=== PATIENT | male | born 1950 | race Caucasian/White ===

== ENCOUNTER 2021-01-22 19:21 | Inpatient (IN) | payer MEDICARE, BC, SELFPAY ==
[2021-01-22 19:22] VITALS: BP 149/82; PULSE 90; RESP 18; TEMP 36.6; O2SAT 98; BMI 27.5
[2021-01-22 19:29] VITALS: BMI 27.5
--- NOTE | 2021-01-22 19:33 | CT_ITS ---
EXAM: CT HEAD WITHOUT INTRAVENOUS CONTRAST : 1950 CLINICAL INDICATION: Neuro deficit, acute, stroke suspected TECHNIQUE: Multiple axial images were obtained of the head without intravenous contrast. This CT exam was performed using one or more of the following dose reduction techniques: automated exposure control, adjustment of the mA and/or kV according to patient size, and/or use of iterative reconstruction technique. This report was created using [employer] report generation technology. COMPARISON: None. FINDINGS: BRAIN AND EXTRA-AXIAL SPACES: There is borderline enlargement of the ventricular system and cortical sulci. No intra- or extra-axial hemorrhage. No evidence of acute infarct. No intracranial mass or mass effect. There is preservation of the green/white matter interface. Posterior fossa structures are unremarkable. Basal cisterns are patent. BONES/JOINTS: Unremarkable. No discrete lytic or blastic abnormalities. SINUSES: Unremarkable as visualized. Clear. MASTOID AIR CELLS: Unremarkable. Clear. ORBITS: Visualized globes, extraocular muscles, optic nerves and retrobulbar fat appear unremarkable. CT/STROKE Brain/Head without Cont IMPRESSION: 1. No acute intracranial abnormality. 2. ASPECTS score 10 Individualized dose optimization techniques were used for this CT. at 2130 Reported and signed by: Anurag Mack MD N.B. : The above Results were Read Back by Anurag Mack MD to Agustín Clark MD, and understanding confirmed on 01/22/2021 21:39:07 (ET). Electronically Signed: Anurag Mack MD at 21:29 EDT Tel , Service support ,
--- NOTE | 2021-01-22 19:33 | EKG12_ITS ---
Test Reason : NEURO Blood Pressure : / mmHG Vent. Rate : 088 BPM Atrial Rate : 088 BPM P-R Int : 162 ms QRS Dur : 086 ms QT Int : 372 ms P-R-T Axes : 033 -32 012 degrees QTc Int : 450 ms Normal sinus rhythm Left axis deviation Inferior infarct , age undetermined Abnormal ECG Confirmed by BAYLEE SUAREZ, LILIANA ([id number]), fan mail editor LUPE REINA ([id number]) on 01/24/2021 10:32:28 AM Referred By: ELOY Confirmed By:LILIANA BEACH MD
--- NOTE | 2021-01-22 19:34 | CT_ITS ---
EXAM: CT ANGIOGRAPHY HEAD AND NECK WITH INTRAVENOUS CONTRAST : 1950 CLINICAL INDICATION: Neuro deficit, acute, stroke suspected TECHNIQUE: [place]/head and neck CT angiography protocol performed with intravenous contrast. This CT exam was performed using one or more of the following dose reduction techniques: automated exposure control, adjustment of the mA and/or kV according to patient size, and/or use of iterative reconstruction technique. This report was created using [employer] report generation technology. MIP reconstructed images were created and reviewed. CONTRAST: IV 100mL [id number] COMPARISON: None. FINDINGS: HEAD: RIGHT ANTERIOR CEREBRAL ARTERY: Unremarkable. No significant stenosis at the visualized segments. Anterior communicating artery is present. No aneurysm. RIGHT MIDDLE CEREBRAL ARTERY: Unremarkable. No significant stenosis at the visualized segments. No aneurysm. RIGHT POSTERIOR CEREBRAL ARTERY: Unremarkable. No occlusion or significant stenosis. No aneurysm. LEFT ANTERIOR CEREBRAL ARTERY: Unremarkable. No significant stenosis at the visualized segments. No aneurysm. LEFT MIDDLE CEREBRAL ARTERY: Unremarkable. No significant stenosis at the visualized segments. No aneurysm. LEFT POSTERIOR CEREBRAL ARTERY: Unremarkable. No occlusion or significant stenosis. No aneurysm. BASILAR ARTERY: Unremarkable. No significant stenosis. No aneurysm. GREAT VESSELS OF AORTIC ARCH: Unremarkable. Normal anatomy, patent. OTHER VASCULATURE: No vascular malformation. NECK: RIGHT COMMON CAROTID ARTERY: Unremarkable. No significant stenosis. No dissection or occlusion. RIGHT INTERNAL CAROTID ARTERY: Unremarkable. No significant stenosis. No dissection or occlusion. RIGHT EXTERNAL CAROTID ARTERY: Unremarkable. No occlusion. RIGHT VERTEBRAL ARTERY: Unremarkable. No significant stenosis. No dissection or occlusion. LEFT COMMON CAROTID ARTERY: Unremarkable. No significant stenosis. No dissection or occlusion. LEFT INTERNAL CAROTID ARTERY: Unremarkable. No significant stenosis. No dissection or occlusion. LEFT EXTERNAL CAROTID ARTERY: Unremarkable. No occlusion. LEFT VERTEBRAL ARTERY: Unremarkable. No significant stenosis. No dissection or occlusion. LUNG APICES: Unremarkable as visualized. SOFT TISSUES: Unremarkable. CAROTID STENOSIS REFERENCE USING NASCET CRITERIA: % ICA stenosis = (1 - narrowest ICA diameter/diameter of distal cervical ICA) x 100. Moderate - 50-69% stenosis. Severe - 70-94% stenosis. Near occlusion - 95-99% stenosis. Occluded - 100% stenosis. CT/STROKE CTA Head AND Neck W/Con IMPRESSION: Negative CTA carotid and CTA brain. Individualized dose optimization techniques were used for this CT. at 2147 Reported and signed by: Anurag Mack MD N.B. : The above Results were Read Back by Anurag Mack MD to Agustín Clark MD, and understanding confirmed on 01/22/2021 21:53:25 (ET). Electronically Signed: Anurag Mack MD at 21:46 EDT Tel , Service support ,
--- NOTE | 2021-01-22 19:38 | EX.ED.DYSGE1 ---
HPI History of Present Illness Chief Complaint: Neuro S/Sx Informant: patient Narrative Narrative: Patient is a 70-year-old male who presents to the emergency department for headache and vision changes. He was sent in by his eye doctor for concern for stroke. His last known well was 6:00 PM yesterday. He had a right-sided headache which she feels is improving at this time. He currently rates as a 3 out of 10. He has lost mostly the vision in his right eye in the superior aspect. He has never had this happen before. He denies any chest pain, shortness of breath or heart palpitations. He is not a blood thinning medications. No head trauma. He denies any weakness or loss of sensation in his extremities. No issues with word finding. No discoordination. He denies any recent illness. No nausea/vomiting. [facility] Medical History (Updated 01/22/21 @ 22:[address] Agustín Clark DO) DM II (diabetes mellitus, type II), controlled HTN (hypertension) Home Medications colestipol 1 g PO BID 01/22/21 [History Last Taken Unknown] dexlansoprazole [Dexilant] 60 mg PO DAILY 01/22/21 [History Last Taken Unknown] fluticasone propionate 1 spray INTRANASAL BID 01/22/21 [History Last Taken Unknown] gabapentin 300 mg PO QHS 01/22/21 [History Last Taken Unknown] lisinopril-hydrochlorothiazide 1 tab PO DAILY 01/22/21 [History Last Taken Unknown] meloxicam 7.5 mg PO DAILY 01/22/21 [History Last Taken Unknown] metformin 500 mg PO DAILY 01/22/21 [History Last Taken Unknown] metoprolol succinate 100 mg PO DAILY 01/22/21 [History Last Taken Unknown] montelukast 10 mg PO DAILY 01/22/21 [History Last Taken Unknown] Allergy/AdvReac Type Severity Reaction Status Date / Time prednisone Allergy Hives Verified 01/22/21 19:25 Surgical History H/O hernia repair H/O knee surgery History of cataract surgery Previous back surgery Social History Smoking Status: Never smoker ROS ROS ED Constitutional Constitutional ED: Denies chills or fever(s) Eyes Eyes: Reports change in vision ENT ENT ED: Denies epistaxis or rhinorrhea Cardiovascular Cardiovascular: Denies chest pain or palpitations Respiratory/Chest Respiratory/Chest: Denies cough, dyspnea or dyspnea on exertion Gastrointestinal Gastrointestinal: Denies abdominal pain, diarrhea, nausea or vomiting Genitourinary Genitourinary ED: Denies dysuria, hematuria or urinary frequency Musculoskeletal Musculoskeletal: Denies back pain or neck pain Integumentary Denies rash Neurologic Neurologic: Reports headache(s); Denies dizziness, paresthesias or weakness EXAM Physical Exam Const Vital Signs: 01/22/21 19:22 01/22/21 20:21 01/22/21 21:21 Temperature 97.9 F Temperature Source Temporal Pulse Rate 90 81 79 Respiratory Rate 18 19 H 19 H Blood Pressure 149/82 H 134/75 H 141/75 H Blood Pressure Mean 104 94 97 Pulse Ox 98 98 99 Oxygen Delivery Method Room Air Room Air Room Air 01/22/21 22:00 Temperature 98 F Temperature Source Temporal Pulse Rate 78 Respiratory Rate 15 Blood Pressure 138/78 H Blood Pressure Mean 98 Pulse Ox 97 Oxygen Delivery Method Room Air Positive well nourished and well developed General Appearance ED: well developed and NAD HEENT Reports normocephalic, head/scalp atraumatic and moist mucous membranes Eyes EOMs intact bilaterally Eyes Narrative: Pupils are dilated from eye doctor's office. Otherwise are round. Decreased peripheral vision in superior aspect mostly in the right eye. Neck supple General: Negative for tenderness Chest Wall inspection of chest normal Resp normal respiratory effort and clear to auscultation bilaterally Auscultation: Negative for rales, rhonchi or wheezes Cardio regular rate, regular rhythm and no murmurs GI normal to inspection, nondistended, normoactive bowel sounds and non-tender Palpation: soft; Negative for guarding or rebound tenderness present Back/Spine no CVA tenderness Extremity normal to inspection General Extremety ED: Negative for edema or tenderness General Extremity: Negative for edema Neuro oriented x3, CN's II-XII intact bilaterally and no sensory deficits noted Neuro Narrative: NIH score of 1 due to vision problem. Sensorium / Orientation: alert Motor Exam: strength 5/5 throughout Psych mental status grossly normal Skin no rashes or lesions noted MDM MDM MDM Narrative Medical decision making narrative: Patient presents to the emergency department for headache and loss of vision in the superior aspect of his right eye. He was seen by the eye doctor today and referred to the emerge department for suspected stroke. Patient is well out of the TPA window. His symptoms are more than 24 hours ago so stroke alert not called. Will check CT imaging as well as basic lab work. Patient CT imaging did not reveal any acute findings. No obvious large vessel occlusion. His lab work did show his creatinine to be high. There are no recent lab work to compare this to. He states that he was never told he had kidney problems before. He states he has not been drinking much water and working on the heat lately. He does have an elevated troponin as well. This could be related to the kidney disease is not complaining of any chest pain or shortness of breath. This time will bring her to the hospital for further evaluation and management. He understands and is agreeable to plan. All questions were answered. Lab Data Labs: Laboratory Results - last 24 hr 01/22/21 01/22/21 01/22/21 19:30 19:30 19:30 WBC 9.4 RBC 4.72 Hgb 14.7 Hct 43.8 MCV 92.8 MCH 31.1 MCHC 33.6 RDW Std Deviation 42.3 RDW Coeff of [place] 12.3 Plt Count 198 MPV 9.7 Immature Gran % (Auto) 0.300 Neut % (Auto) 64.1 Lymph % (Auto) 23.4 [place] % (Auto) 10.6 H Eos % (Auto) 1.0 Baso % (Auto) 0.6 Absolute Neuts (auto) 6.0 Absolute Lymphs (auto) 2.20 Nucleated RBC % 0 PT 13.1 INR 1.1 APTT 25.1 Sodium 138 Potassium 4.6 Chloride 105 Carbon Dioxide 25.0 Anion Gap 8 BUN 44 H Creatinine 2.57 H Estim Creat Clear Calc 27.13 Est GFR (MDRD) Af Amer 32 L Est GFR (MDRD) Non-Af 27 L BUN/Creatinine Ratio 17.1 Glucose 143 H Calcium 8.6 Troponin I High Sens 161.5 H* POC Glucose 01/22/21 19:38 WBC RBC Hgb Hct MCV MCH MCHC RDW Std Deviation RDW Coeff of [place] Plt Count MPV Immature Gran % (Auto) Neut % (Auto) Lymph % (Auto) [place] % (Auto) Eos % (Auto) Baso % (Auto) Absolute Neuts (auto) Absolute Lymphs (auto) Nucleated RBC % PT INR APTT Sodium Potassium Chloride Carbon Dioxide Anion Gap BUN Creatinine Estim Creat Clear Calc Est GFR (MDRD) Af Amer Est GFR (MDRD) Non-Af BUN/Creatinine Ratio Glucose Calcium Troponin I High Sens POC Glucose 158 H Radiography Diagnostic Testing: Radiology Impression Head/Neck CTA 01/22/21 19:34 IMPRESSION: Negative CTA carotid and CTA brain. Individualized dose optimization techniques were used for this CT. at 2147 Reported and signed by: Anurag Mack MD Electronically Signed: Anurag Mcak MD at 21:46 EDT Tel , Service support , ADDENDUM: 01/22/21 2200 IMPRESSION: Negative CTA carotid and CTA brain. Individualized dose optimization techniques were used for this CT. at 2147 Reported and signed by: Anurag Mack MD N.B. : The above Results were Read Back by Anurag Mack MD to Agustín Clark MD, and understanding confirmed on 01/22/2021 21:53:25 (ET). Electronically Signed: Anurag Mack MD at 21:46 EDT Tel , Service support , Chest X-Ray 01/22/21 19:39 IMPRESSION: No acute findings in the chest. at 2013 Reported and signed by: Anurag Mack MD Electronically Signed: Anurag Mack MD at 20:12 EDT Tel , Service support , EKG Initial EKG: Attestation: I personally reviewed and interpreted this EKG as follows: (Rate of 88 bpm and normal sinus rhythm. Normal intervals. Left axis deviation. No significant ST elevations or depressions. No T wave abnormalities.) Discharge Plan Dx/Rx/DC Orders Clinical Impression: Headache, Loss of part of visual field, Creatinine elevation, Elevated troponin Disposition Disposition: Acute Care Hospital [facility] Discharge Date/Time: 01/22/21 22:36
--- NOTE | 2021-01-22 19:39 | RAD_ITS ---
EXAM: XR CHEST, 1 VIEW : 1950 CLINICAL INDICATION: Neuro deficit, acute, stroke suspected TECHNIQUE: Frontal view of the chest. This report was created using [employer] report generation technology. COMPARISON: None. FINDINGS: LUNGS AND PLEURAL SPACES: Unremarkable. No consolidation or edema. No pneumothorax. No effusion. HEART: Unremarkable. Cardiac silhouette not enlarged. MEDIASTINUM: Central airways and mediastinal contour are unremarkable. BONES/JOINTS: There is a total right shoulder prosthesis. There are degenerative changes with joint space narrowing of the left shoulder. SOFT TISSUES: Unremarkable. RAD/Chest 1 View IMPRESSION: No acute findings in the chest. at 2013 Reported and signed by: Anurag Mack MD Electronically Signed: Anurag Mack MD at 20:12 EDT Tel , Service support ,
[2021-01-22 19:41] LABS: Bedside Glucose 158 mg/dL (70-110)
[2021-01-22 19:41] LABS: Basophil# 0.06 X10^3/uL; Basophil% 0.6 % (0-1); Eosinophil# 0.09 X10^3/uL; Hematocrit 43.8 % (40-54); Hemoglobin 14.7 g/dL (13.0-16.5); Lymphocyte % 23.4 % (19-41); Mean Corp Hgb Conc 33.6 g/dL (32-36); Mean Corpuscular Hgb 31.1 pg (27.0-32.0); Mean Corpuscular Volume 92.8 fL (80-94); Mean Platelet Vol. 9.7 fl (6.2-12.0); Monocyte% 10.6 % (0-10); NRBC Flagged by Analyzer 0 % (0-5); Neutrophil # 6.03 X10^3/uL (2.7-7.7); Neutrophil % 64.1 % (47-70); Platelet Count 198 K/mm3 (150-450); RBC Distribution Width CV 12.3 % (11.6-14.6); RBC Distribution Width SD 42.3 fl (35.1-43.9); Red Blood Count 4.72 M/mm3 (4.6-6.2); White Blood Count 9.4 K/mm3 (4.4-11.0)
[2021-01-22 19:46] LABS: International Normalized Ratio 1.1; Prothrombin Time (Protime)PT. 13.1 SECONDS (11.7-14.9)
[2021-01-22 19:47] LABS: Partial Thromboplast Time 25.1 Seconds (24.1-36.2)
[2021-01-22 19:59] LABS: Anion Gap 8 (5-15); BUN 44 mg/dL (7-18); BUN/Creat Ratio 17.1 RATIO (10-20); Calcium,Total 8.6 mg/dL (8.5-10.1); Chloride 105 mmol/L (98-107); Creatinine, Serum 2.57 mg/dL (0.70-1.30); EST Glomerular Filtration Rate 27 mL/min (>60); Est Glom Filt Rate - Afr Amer 32 mL/min (>60); Estimated Creatinine Clearance 27.13 ml/min; Glucose 143 mg/dL (74-106); Potassium 4.6 mmol/L (3.5-5.1); Sodium Level 138 mmol/L (136-145)
[2021-01-22 20:01] LABS: Troponin-I HS 161.5 pg/mL (3.0-78.5)
[2021-01-22] MEDS: 0.9% Normal Saline 1,000 ML 999 ML IV (20:16)
[2021-01-22 20:21] VITALS: BP 134/75; PULSE 81; RESP 19; O2SAT 98
[2021-01-22 21:21] VITALS: BP 141/75; PULSE 79; RESP 19; O2SAT 99
[2021-01-22 22:00] VITALS: BP 138/78; PULSE 78; RESP 15; TEMP 36.6; O2SAT 97
[2021-01-22 22:09] VITALS: BP 149/89; PULSE 79; RESP 18; TEMP 36.7; O2SAT 99
--- NOTE | 2021-01-22 22:10 | HP.PCM.HOS_ITS ---
HPI - General General Date of Admission: 01/22/21 Date of Service: 01/22/21 Chief Complaint: Blurriness of the right eye HPI Narrative GREG OLIVERA is a 70 M with a significant history of hypertension and diabetes who presents to the emergency department with a persistent right eye blurry vision that started on the same day of presentation. His blurry vision is located at the right upper quadrants of his right eye. Even though it was a Saturday he called his dress finisher and went to the dress finisher office where pupillary dilatation exams was done. Because of concern for stroke he was instructed to come to emergency department. Also, he reports headache that started a day before presentation. The headache was at his forehead. He described it as as severe. The headache improved with taking Tylenol. [facility] Medical History DM II (diabetes mellitus, type II), controlled HTN (hypertension) Home Medications colestipol 1 g PO BID 01/22/21 [History Last Taken Unknown] dexlansoprazole [Dexilant] 60 mg PO DAILY 01/22/21 [History Last Taken Unknown] fluticasone propionate 1 spray INTRANASAL BID 01/22/21 [History Last Taken Unknown] gabapentin 300 mg PO QHS 01/22/21 [History Last Taken Unknown] lisinopril-hydrochlorothiazide 1 tab PO DAILY 01/22/21 [History Last Taken Unknown] meloxicam 7.5 mg PO DAILY 01/22/21 [History Last Taken Unknown] metformin 500 mg PO DAILY 01/22/21 [History Last Taken Unknown] metoprolol succinate 100 mg PO DAILY 01/22/21 [History Last Taken Unknown] montelukast 10 mg PO DAILY 01/22/21 [History Last Taken Unknown] Allergy/AdvReac Type Severity Reaction Status Date / Time prednisone Allergy Hives Verified 01/22/21 19:25 other (His father from poisoning. His mother from natural courses.) Surgical History H/O hernia repair H/O knee surgery H/O shoulder surgery History of cataract surgery Previous back surgery Social History Smoking Status: Never smoker ROS ROS Narrative Constitutional: Denies anorexia and change in weight Eyes: Reports blurry vision of the right eye. Denies eye pain or erythema of t he eye. HEENT: Reports headache. Denies abnormal hearing, dysphagia, ear pain, epistaxis, hearing loss, nasal congestion, nasal discharge, post nasal drip, sinus pressure, sore throat or other Cardiovascular: Denies chest pain. Denies dyspnea on exertion, orthopnea and paroxysmal nocturnal dyspnea Respiratory/Chest: Denies cough, excessive phlegm production, shortness of breath with exertion and wheezing Gastrointestinal: Denies abdominal pain, coffee ground emesis, constipation, diarrhea, dyspepsia, hematemesis, hematochezia, loose stools, melena, nausea, vomiting or other Genitourinary: Denies burning urination, difficulty urinating, dysuria, hematuria, nocturia, urinary frequency, urinary hesitancy, urinary incontinence, urinary urgency or other Musculoskeletal: Denies arthralgias, back pain, joint pain, joint stiffness, joint swelling, myalgias, neck pain or other Neurologic: Reports headache. Denies abnormal gait, abnormal speech, confusion, disequilibrium, dizziness, focal weakness, numbness, paresthesias, seizure-like activity, seizures, syncope, tingling, tremor(s) or other Psychiatric: Denies anxiety, depression, homicidal ideation, suicidal ideation or other Endocrinology: Denies change in body appearance, cold intolerance, excessive sweating, heat intolerance, polydipsia, polyuria or other Hematologic/Lymphatic: Denies anemia, easy bleeding, easy bruising, lymphadenopathy or other Integumentary: Denies ulcer on buttocks. Allergic/Immunologic: Denies rhinitis, hives, eczema, asthma or other Vital Signs Vital Signs Vital Signs: 01/22/21 19:22 01/22/21 20:21 01/22/21 21:21 Temperature 97.9 F Temperature Source Temporal Pulse Rate 90 81 79 Respiratory Rate 18 19 H 19 H Blood Pressure 149/82 H 134/75 H 141/75 H Blood Pressure Mean 104 94 97 Pulse Ox 98 98 99 Oxygen Delivery Method Room Air Room Air Room Air 01/22/21 22:00 Temperature 98 F Temperature Source Temporal Pulse Rate 78 Respiratory Rate 15 Blood Pressure 138/78 H Blood Pressure Mean 98 Pulse Ox 97 Oxygen Delivery Method Room Air Weight Weight: 84.6 kg Body Mass Index (BMI) 27.5 Physical Exam Narrative Physical exam: General: Well-nourished, well-developed, no acute distress Head: Normocephalic, atraumatic, no tenderness Eyes: Dilated bilateral eyes. PERRLA, EOMI ENT, no trauma, moist mucous membranes, no rhinorrhea Neck: Nontender, full range of motion, no spinal tenderness, deformities, step- off CVS: Regular rate and rhythm Respiratory no acute distress, clear to auscultation bilaterally, chest wall nontender, no wheezing Abdomen: Soft, nontender, nondistended, normal bowel sounds, no masses : Deferred Back: Nontender, no CVA tenderness, no midline spinal tenderness, deformities, step-offs Extremities: Nontender full range of motion, no trauma Skin: Normal color, no trauma, abrasions Neuro: Alert, oriented, cranial nerves II through XII grossly intact; except with right upper quadrantanopsia of the right eye. No dysmetria. No change in sensation. Deep tendon reflexes not hyperreflexia throughout Psychiatry: Normal mood. Normal affect. Not depressed. Not anxious. Results Lab / Micro Data Result Diagrams: 01/22/21 19:30 01/22/21 19:30 Labs: Laboratory Results - last 24 hr 01/22/21 19:30: WBC 9.4, RBC 4.72, Hgb 14.7, Hct 43.8, MCV 92.8, MCH 31.1, MCHC 33.6, RDW Std Deviation 42.3, RDW Coeff of [place] 12.3, Plt Count 198, MPV 9.7, Immature Gran % (Auto) 0.300, Neut % (Auto) 64.1, Lymph % (Auto) 23.4, [place] % (Auto) 10.6 H, Eos % (Auto) 1.0, Baso % (Auto) 0.6, Absolute Neuts (auto) 6.0, Absolute Lymphs (auto) 2.20, Nucleated RBC % 0 01/22/21 19:30: PT 13.1, INR 1.1, APTT 25.1 01/22/21 19:30: Sodium 138, Potassium 4.6, Chloride 105, Carbon Dioxide 25.0, Anion Gap 8, BUN 44 H, Creatinine 2.57 H, Estim Creat Clear Calc 27.13, Est GFR (MDRD) Af Amer 32 L, Est GFR (MDRD) Non-Af 27 L, BUN/Creatinine Ratio 17.1, Glucose 143 H, Calcium 8.6, Troponin I High Sens 161.5 H* 01/22/21 19:38: POC Glucose 158 H Radiology Impression Head/Neck CTA 01/22/21 19:34 IMPRESSION: Negative CTA carotid and CTA brain. Individualized dose optimization techniques were used for this CT. at 2147 Reported and signed by: Anurag Mack MD Electronically Signed: Anurag Mack MD at 21:46 EDT Tel , Service support , ADDENDUM: 01/22/21 2200 IMPRESSION: Negative CTA carotid and CTA brain. Individualized dose optimization techniques were used for this CT. at 2147 Reported and signed by: Anurag Mack MD N.B. : The above Results were Read Back by Anurag Mack MD to Agustín Clark MD, and understanding confirmed on 01/22/2021 21:53:25 (ET). Electronically Signed: Anurag Mack MD at 21:46 EDT Tel , Service support , Chest X-Ray 01/22/21 19:39 IMPRESSION: No acute findings in the chest. at 2013 Reported and signed by: Anurag Mack MD Electronically Signed: Anurag Mack MD at 20:12 EDT Tel , Service support , Assessment & Plan Assessment/Plan (1) Headache: QUALIFIERS: Headache chronicity pattern: acute headache Headache type: tension-type Intractability: intractable Qualified Code(s): G44.201 - Tension-type headache, unspecified, intractable (2) Loss of part of visual field: (3) Creatinine elevation: (4) Elevated troponin: (5) FABY (acute kidney injury): PLAN: Loss of part of visual field/ headache Differential diagnosis include stroke. Impression of head/neck CTA by radiology: Negative CTA carotid and CT brain. Actual head and neck CTA image was independently interpreted: No acute pathology seen. Impressive chest x-ray by radiology: No acute findings in the chest. Actual chest x-ray image was independently interpreted and I agree with radiologist interpretation. -Check Hba1c, Lipid level Physical therapy, and occupational therapy to work with patient. N.p.o. until bedside swallow eval. Daily aspirin ordered. High intensity statin ordered Permissive hypertension. Control blood pressure with labetalol IV and hydralazine IV for systolic blood pressure of more than 220 or diastolic blood pressure of more than 120. MRI of brain ordered No previous echocardiogram on file. Echocardiogram ordered. FABY Baseline creatinine of 0.94 per Community records reviewed reviewed where creatinine on 08/03/2020 was 0.96; and creatinine 02/05/2020 was 0.90. Creatinine on admission was 2.57. BUN 44. BUN over creatinine 17.1. Urine electrolytes ordered. Gentle IV hydration. Avoid nephrotoxins. Home meloxicam held. Lisinopril and hydrochlorothiazide held. De-escalate dose of home gabapentin. Elevated troponin High sensitivity troponin of 161.5. Likely secondary to strokelike symptoms. Trend. Hypertension Blood pressure is stable in regard to his age. Home antihypertensive medication held as above to allow for permissive hypertension. As needed hydralazine and labetalol for permissive hypertension. Diabetes mellitus Patient with mild hyperglycemia on presentation. Home Metformin held Accu-Chek QA [facility] with correction scale insulin ordered. DVT prophylaxis: SCD ordered. Charges/Coding Visit Charges OBSV E&M: 93699 Initial observation care L3
--- NOTE | 2021-01-22 22:46 | ECHOD_ITS ---
Reason For Study: TIA/CVA Procedure This was a 2D Doppler, Color Flow transthoracic echocardiogram. Exam performed portable in patient room. Left Ventricle Normal LV size. Left ventricular systolic function is normal. The estimated ejection fraction is 60 %. Stage 1 diastolic dysfunction. No regional wall motion abnormalities noted. Right Ventricle Normal RV size. Normal systolic function. Atria Normal left atrium. Normal right atrium. Bubble contrast study negative for right to left interatrial shunt. Mitral Valve There is mild to moderate mitral annular calcification. Tricuspid Valve Normal tricuspid valve. Trivial tricuspid valve insufficiency. Aortic Valve Normal aortic valve. Great Vessels Normal aortic root. The pulmonary artery is normal size. Normal inferior vena cava. Pericardium/Pleural No pericardial effusion. Medication Performed a rapid injection of agitated mix of 9 cc saline and 1cc air to assess for atrial septal defect. MMode/2D Measurements & Calculations LVIDd: 5.3 cm IVSd: 0.85 cm Ao root diam: 3.2 cm LVIDs: 2.9 cm LVPWd: 0.92 cm RVDd: 3.4 cm FS: 45.9 % LAV(MOD-bp): 47.5 ml LA A4 area: 15.1 cm2 LA dimension(2D): 3.8 cm LAV(MOD-bp) Indexed: 23.9 ml/m2 LAV(MOD-sp2): 43.3 ml LAV(MOD-sp4): 42.3 ml RA A4 area: 9.8 cm2 Doppler Measurements & Calculations MV E max david: 83.8 cm/sec Lat Peak E' David: 8.5 cm/sec Med Peak E' David: 5.7 cm/sec MV A max david: 98.4 cm/sec E/E' lat: 9.8 E/E' med: 14.6 MV E/A: 0.85 Ao V2 max: 135.9 cm/sec LV V1 max: 104.4 cm/sec PA V2 max: 91.9 cm/sec Ao max P.4 mmHg LV V1 max P.4 mmHg Ao V2 mean: 88.7 cm/sec Ao mean P.5 mmHg Ao V2 VTI: 26.8 cm TR max david: 219.9 cm/sec TR max P.3 mmHg ECHO/Echo Complete Interpretation Summary Normal LV size. Left ventricular systolic function is normal. The estimated ejection fraction is 60 %. Bubble contrast study negative for right to left interatrial shunt. Stage 1 diastolic dysfunction. Ordering Physician: Agustín Good Referring Physician: Fatmata Uribe Performed By: Felicity Sharpe, ODALIS, RVT
[2021-01-22 22:49] VITALS: BMI 26.9
[2021-01-22 23:00] VITALS: PULSE 76; O2SAT 99
[2021-01-22] MEDS: Fluticasone 0.05% 1 SPRAY NASAL.SRY NASAL (23:17)
[2021-01-22] MEDS: Gabapentin 300 MG Capsule PO (23:17)
[2021-01-22] MEDS: 0.9% Normal Saline 1,000 ML 100 ML IV (23:18)
[2021-01-22 23:40] LABS: Bedside Glucose 141 mg/dL (70-110)
[2021-01-23] VITALS (15 sets, daily range): BP systolic 143–176; BP diastolic 80–92; PULSE 64–87; RESP 12–17; TEMP 36.2–37.1; O2SAT 92–100; BMI 26.9
[2021-01-23 00:03] LABS: Urine Sodium 74 mmol/L (Not Establ.)
[2021-01-23 00:35] LABS: Troponin-I HS 156.4 pg/mL (3.0-78.5)
[2021-01-23 02:10] LABS: Troponin-I HS 150.5 pg/mL (3.0-78.5)
[2021-01-23 02:26] LABS: ALB/GLOB Ratio 0.9 RATIO (0.9-2.4); AST(SGOT) 15 U/L (15-37); Alanine Aminotransfer ALT/SGPT 25 U/L (16-61); Albumin, Serum 3.1 g/dL (3.2-5.0); Alkaline Phosphatase 84 U/L (45-117); Anion Gap 6 (5-15); BUN 38 mg/dL (7-18); BUN/Creat Ratio 26.6 RATIO (10-20); Calcium,Total 7.9 mg/dL (8.5-10.1); Chloride 107 mmol/L (98-107); Cholesterol 135 mg/dL (200); Creatinine, Serum 1.43 mg/dL (0.70-1.30); EST Glomerular Filtration Rate 52 mL/min (>60); Est Glom Filt Rate - Afr Amer 63 mL/min (>60); Estimated Creatinine Clearance 48.75 ml/min; Globulin 3.3 g/dL (2.2-4.2); Glucose 125 mg/dL (74-106); High Density Lipoprotein 30 mg/dL; Potassium 3.9 mmol/L (3.5-5.1); Protein, Total 6.4 g/dL (6.4-8.2); Sodium Level 138 mmol/L (136-145); Triglycerides 273 mg/dL; Very Low Density Lipoprotein 55 mg/dL (5-40)
[2021-01-23 02:32] LABS: Hemoglobin A1c 6.1 % (3.8-5.6)
[2021-01-23] MEDS: Acetaminophen 325 MG Tablet 650 MG PO ×2 (06:41→16:58)
[2021-01-23 06:51] LABS: Bedside Glucose 125 mg/dL (70-110)
--- NOTE | 2021-01-23 09:00 | MRI_ITS ---
ACR Level 3 findings have been noted. An addendum which confirms receipt of the report will follow. HISTORY: CVA, right eye blurred vision. TECHNIQUE: Multiplanar and multisequence MR images of the brain were obtained without gadolinium. # of images incl. paperwork: 300. COMPARISON: CT prior day. FINDINGS: BRAIN PARENCHYMA: Mild T2 FLAIR hyperintense signal in the periventricular white matter. Small foci of restricted diffusion in the left basal ganglia and left occipital cortex. INTRACRANIAL HEMORRHAGE: No acute intracranial hemorrhage. CSF SPACES: Cerebral ventricles, cortical sulci, and other extra-axial CSF spaces are within normal limits in size for patient's age. No midline shift or other significant mass effect. No extra-axial fluid collection. VASCULAR SYSTEM: Major intracranial flow-voids maintained. ORBITS: Bilateral lens resections. PARANASAL SINUSES AND MASTOID AIR CELLS: Mild left paranasal sinus opacification. MRI/Brain without Contrast IMPRESSION: Small acute infarct in the left occipital lobe. Small acute lacunar infarct in the left basal ganglia. Mild chronic small vessel ischemic gliosis. at 1220 Reported and signed by: Nina Pereyra MD Electronically Signed: Nina Pereyar MD at 12:19 EDT Tel , Service support ,
[2021-01-23] MEDS: Fluticasone 0.05% 1 SPRAY NASAL.SRY NASAL ×2 (09:11→21:23)
[2021-01-23] MEDS: Pantoprazole Sodium 40 MG Tablet PO (09:12)
[2021-01-23] MEDS: LORazepam 1 MG Tablet PO (09:12)
[2021-01-23] MEDS: Aspirin 81 MG TAB.CHEW PO (09:12)
[2021-01-23] MEDS: Montelukast 10 MG Tablet PO (09:13)
[2021-01-23 11:21] LABS: Bedside Glucose 130 mg/dL (70-110)
--- NOTE | 2021-01-23 13:49 | TELEMED_ITS ---
[facility] Telemed has confirmed receipt of a request for visit. This document confirms receipt of the order initiating the consult. To find the results of the consultation, please view the patient's reports for the scanned Telemed Consult.
--- NOTE | 2021-01-23 14:54 | CASEMGMT ---
SW completed a PHQ 9 with patient as he had a Stroke. He scored a 2 which indicates minimal depression. He declined any need for counseling resources. ESME did give him information on [facility] Stroke support group. Miranda VANESSA
[2021-01-23 17:05] LABS: Bedside Glucose 103 mg/dL (70-110)
[2021-01-23] MEDS: Aspirin E.C. 81 MG Tablet 243 MG PO (19:03)
--- NOTE | 2021-01-23 19:38 | ECHOTEE_ITS ---
Reason For Study: CVA Medication ROMMEL probe 6VT-D (SN [id number]) passed without difficulty. No complications were noted. Cetacaine Topical Clyo given X3 orally. Versed 3 mg given slow IVP. Fentanyl 50 mcg given slow IVP. Performed a rapid injection of agitated mix of 9 cc saline and 1cc air to assess for atrial septal defect. Left Ventricle Normal LV size. Left ventricular systolic function is normal. The estimated ejection fraction is 60 %. No regional wall motion abnormalities noted. Right Ventricle Normal RV size. Normal systolic function. Atria Normal atrial septum. Bubble contrast study negative for right to left interatrial shunt. Normal left atrium. No thrombus is detected in the left atrial appendage. Normal right atrium. Mitral Valve Normal mitral valve. Tricuspid Valve Normal tricuspid valve. Aortic Valve Trisinus/trileaflet aortic valve. Pulmonic Valve Normal pulmonic valve. Vessels Normal aortic root. Pericardium No pericardial effusion. ECHO/Echo Transesophageal (ROMMEL) Interpretation Summary Normal LV size. Left ventricular systolic function is normal. The estimated ejection fraction is 60 %. Bubble contrast study negative for right to left interatrial shunt. No thrombus is detected in the left atrial appendage. Ordering Physician: Werner Borjas Referring Physician: ANTONIA KWON Performed By: Cristy Cameron, RDCS, RVT
--- NOTE | 2021-01-23 19:54 | PN.HOSP_ITS ---
Subjective Subjective Patient was seen and examined today, his MRI of the brain showed a lacunar infarction in the left basal ganglia, he also had a small acute infarction in the left occipital lobe. I talked with the teleneurologist by phone today who stated that he felt the patient's visual disturbances were due to an emboli which should travel to the eye, the neurologist recommended the patient undergo ROMMEL and perhaps the insertion of a loop recorder, he also recommended that cardiology see the patient in consultation. Neurology did not feel the patient needed to be placed on a statin due to his low LDL. They recommend the patient be maintained on aspirin 325 mg daily and Plavix not be added to his regimen. I talked with cardiology this afternoon and they will see the patient in consultation. I also went over the patient's findings with him today and ask his if she had any questions by phone, she did not. Objective Data Objective Data Vital Signs: Vital Signs Temp Pulse Resp BP Pulse Ox 98.1 F 71 14 167/92 H 99 01/23/21 16:55 01/23/21 18:58 01/23/21 16:55 01/23/21 16:55 01/23/21 16:55 Oxygen Delivery Method Room Air Weight: 82.8 kg Body Mass Index (BMI) 26.9 Intake & Output: Intake and Output for Last 24 Hours 01/21/21 01/22/21 01/23/21 23:59 23:59 23:59 Intake Total 1000 / 1100 2233.33 / 2233.33 Output Total 250 / 250 Balance 1000 / 850 1983.33 / 1982.33 Medical Nutrition Assessment Dietitian: Nutrition Therapy Diagnosis Start: 01/23/21 14:35 Freq: Status: Active Protocol: Document 01/23/21 16:23 RMA (Rec: 01/23/21 16:23 RMA [id number]) Nutrition Malnutrition Evidence of Malnutrition Exists No Clinical Problem Altered Nutrient-Related Laboratory Values Etiology related to dyslipidemia Signs/Symptoms as evidenced by triglyceride 273 Status Active Problem Recommendation Dietitian Recommendations/Changes Will change diet to 2000 calorie/consistent carbohydrate; cardiac. Diet education as pt willing prior to d/c. Lab / Micro Data Result Diagrams: 01/22/21 19:30 01/23/21 01:30 Labs: Laboratory Results - last 24 hr 01/22/21 19:30: Sodium 138, Potassium 4.6, Chloride 105, Carbon Dioxide 25.0, Anion Gap 8, BUN 44 H, Creatinine 2.57 H, Estim Creat Clear Calc 27.13, Est GFR (MDRD) Af Amer 32 L, Est GFR (MDRD) Non-Af 27 L, BUN/Creatinine Ratio 17.1, Glucose 143 H, Calcium 8.6, Troponin I High Sens 161.5 H* 01/22/21 19:30: Hemoglobin A1c 6.1 H 01/22/21 23:26: POC Glucose 141 H 01/22/21 23:45: Troponin I High Sens 156.4 H* 01/22/21 : Ur Random Sodium 74, Urine Creatinine 59.90 01/23/21 01:30: Sodium 138, Potassium 3.9, Chloride 107, Carbon Dioxide 25.0, Anion Gap 6, BUN 38 H, Creatinine 1.43 H, Estim Creat Clear Calc 48.75, Est GFR (MDRD) Af Amer 63, Est GFR (MDRD) Non-Af 52 L, BUN/Creatinine Ratio 26.6 H, Glucose 125 H, Calcium 7.9 L, Total Bilirubin 0.20, AST 15, ALT 25, Alkaline Phosphatase 84, Total Protein 6.4, Albumin 3.1 L, Globulin 3.3, Albumin/Globulin Ratio 0.9, Triglycerides 273 H, Cholesterol 135, LDL Cholesterol 50, VLDL Cholesterol 55 H, HDL Cholesterol 30 L 01/23/21 01:30: Troponin I High Sens 150.5 H* 01/23/21 06:43: POC Glucose 125 H 01/23/21 11:15: POC Glucose 130 H 01/23/21 16:53: POC Glucose 103 Radiography Diagnostic Testing: Radiology Impression Brain CT 01/22/21 19:33 IMPRESSION: 1. No acute intracranial abnormality. 2. ASPECTS score 10 Individualized dose optimization techniques were used for this CT. at 2130 Reported and signed by: Anurag Mack MD N.B. : The above Results were Read Back by Anurag Mack MD to Agustín Clark MD, and understanding confirmed on 01/22/2021 21:39:07 (ET). Electronically Signed: Anurag Mack MD at 21:29 EDT Tel , Service support , Head/Neck CTA 01/22/21 19:34 IMPRESSION: Negative CTA carotid and CTA brain. Individualized dose optimization techniques were used for this CT. at 2147 Reported and signed by: Anurag Mack MD N.B. : The above Results were Read Back by Anurag Mack MD to Agustín Clark MD, and understanding confirmed on 01/22/2021 21:53:25 (ET). Electronically Signed: Anurag Mack MD at 21:46 EDT Tel , Service support , Chest X-Ray 01/22/21 19:39 IMPRESSION: No acute findings in the chest. at 2013 Reported and signed by: Anurag Mack MD Electronically Signed: Anurag Mack MD at 20:12 EDT Tel , Service support , Echocardiogram 01/22/21 22:46 Interpretation Summary Normal LV size. Left ventricular systolic function is normal. The estimated ejection fraction is 60 %. Bubble contrast study negative for right to left interatrial shunt. Stage 1 diastolic dysfunction. Ordering Physician: Agustín Good Referring Physician: Fatmata Uribe Performed By: Felicity Sharpe, WILBERTOCS, RVT Brain MRI 01/23/21 09:00 IMPRESSION: Small acute infarct in the left occipital lobe. Small acute lacunar infarct in the left basal ganglia. Mild chronic small vessel ischemic gliosis. at 1220 Reported and signed by: Nina Pereyra MD Electronically Signed: Nina Pereyra MD at 12:19 EDT Tel , Service support , Physical Exam Const alert, oriented x3, no apparent distress, average body habitus and healthy appearing General Appearance: cooperative, well kempt and well developed Orientation / Consciousness: awake, oriented to person, oriented to place and oriented to time HEENT normocephalic and moist oral mucous membranes Eyes PERRL, EOMs intact bilaterally and conjunctivae normal Neck nuchal rigidity, supple, no JVD, thyroid normal and no carotid bruits General: trachea midline Resp normal respiratory effort and clear to auscultation bilaterally Auscultation: Negative for rales, rhonchi or wheezes Cardio regular rate, regular rhythm, no murmurs, no rub and no gallops GI normal to inspection, nondistended, normoactive bowel sounds, soft to palpation, non-tender and non-distended Extremity no clubbing, cyanosis or edema Skin no rashes or lesions noted General Skin Exam: no breakdown Neuro oriented x3, CN's II-XII intact bilaterally, no focal motor deficits and no sensory deficits noted Sensorium / Orientation: awake and alert Speech: speech normal Motor Exam: strength 5/5 throughout Psych thought process normal and affect normal Assessment & Plan Assessment/Plan (1) Loss of part of visual field: PLAN: 1. Acute left occipital lobe stroke-believed to be embolic in nature-treatment as outlined previously #2 small acute lacunar infarct left basal ganglia-believed to be embolic in nature-treatment as outlined previously #3 type 2 diabetes #4 acute kidney injury-probably exacerbated by use of diuretics as outpatient, recheck BMP in the morning #5 essential hypertension Charges/Coding Visit Charges Inpatient E&M: 73353 Init Hosp L3
[2021-01-23] MEDS: Gabapentin 100 MG Capsule 200 MG PO (21:23)
[2021-01-23 21:46] LABS: Bedside Glucose 145 mg/dL (70-110)
[2021-01-24] VITALS (7 sets, daily range): BP systolic 137–178; BP diastolic 80–91; PULSE 69–82; RESP 16–18; TEMP 36.4–36.9; O2SAT 95–100; BMI 26.9
[2021-01-24 05:35] LABS: Anion Gap 4 (5-15); BUN 18 mg/dL (7-18); Calcium,Total 8.7 mg/dL (8.5-10.1); Chloride 108 mmol/L (98-107); Creatinine, Serum 0.86 mg/dL (0.70-1.30); EST Glomerular Filtration Rate 94 mL/min (>60); Est Glom Filt Rate - Afr Amer 114 mL/min (>60); Estimated Creatinine Clearance 81.07 ml/min; Glucose 132 mg/dL (74-106); Potassium 4.2 mmol/L (3.5-5.1); Sodium Level 138 mmol/L (136-145)
[2021-01-24] MEDS: Acetaminophen 325 MG Tablet 650 MG PO (06:37)
[2021-01-24] MEDS: 0.9% Saline Lock 10 ML Syringe IV (06:38)
[2021-01-24 07:00] LABS: Bedside Glucose 135 mg/dL (70-110)
--- NOTE | 2021-01-24 08:36 | CON.PCM.CA_ITS ---
Assessment & Plan Assessment/Plan (1) Loss of part of visual field: PLAN: Patient was noted to have loss of part of the visual field and was seen by neurology. They requested a transesophageal echocardiogram. It was p erformed this morning. His left atrial appendage was noted to be normal and nondilated. His mitral and tricuspid and aortic valves were noted to be normal. There is mild atherosclerotic plaquing noted in the aorta. At this time I would not recommend any other changes. * Would recommend a 30-day event monitor and outpatient visit in 6 weeks. HPI Consult Data Date of Consult: 01/24/21 HPI Narrative HPI Narrative: GREG OLIVERA, is a 70 M who presents with a history of hypertension, diabetes mellitus, who presents to the emergency department with a persistent right eye blurry vision that started on the same day of presentation. His blurry vision is located at the right upper quadrants of his right eye. Even though it was a Saturday he called his actuarial science teacher and went to the actuarial science teacher office where pupillary dilatation exams was done. Because of concern for stroke he was instructed to come to emergency department. Also, he reports headache that started a day before presentation. The headache was at his forehead. He described it as as severe. The headache improved with taking Tylenol. He was seen by neurology and then subsequently asked that they consult cardiology for cardiac evaluation for a ROMMEL. [facility] Medical History DM II (diabetes mellitus, type II), controlled HTN (hypertension) Home Medications colestipol 1 g PO BID 01/22/21 [History Last Taken Unknown] dexlansoprazole [Dexilant] 60 mg PO DAILY 01/22/21 [History Last Taken Unknown] fluticasone propionate 1 spray INTRANASAL BID 01/22/21 [History Last Taken Unknown] gabapentin 300 mg PO QHS 01/22/21 [History Last Taken Unknown] lisinopril-hydrochlorothiazide 1 tab PO DAILY 01/22/21 [History Last Taken Unknown] meloxicam 7.5 mg PO DAILY 01/22/21 [History Last Taken Unknown] metformin 500 mg PO DAILY 01/22/21 [History Last Taken Unknown] metoprolol succinate 100 mg PO DAILY 01/22/21 [History Last Taken Unknown] montelukast 10 mg PO DAILY 01/22/21 [History Last Taken Unknown] Allergy/AdvReac Type Severity Reaction Status Date / Time prednisone Allergy Hives Verified 01/22/21 19:25 Surgical History H/O hernia repair H/O knee surgery H/O shoulder surgery History of cataract surgery Previous back surgery Social History Smoking Status: Never smoker ROS Constitutional Constitutional: Denies fever(s) or weight loss Eyes Eyes: Reports as per HPI ENT HEENT: Reports as per HPI Cardiovascular Cardiovascular: Reports other Respiratory/Chest Respiratory/Chest: Reports other Gastrointestinal Gastrointestinal: Denies change in bowel habits, nausea, vomiting or weight changes Genitourinary Genitourinary: Denies difficulty urinating Musculoskeletal Musculoskeletal: Denies joint stiffness or muscle weakness Integumentary Integumentary: Denies lesions Neurologic Neurologic: Denies dizziness or syncope Psychiatric Psychiatric: Denies anxiety Endocrine Endocrinology: Denies excessive sweating or fatigue Hematologic/Lymphatic Hematologic/Lymphatic: Denies anemia Allergic/Immunologic Allergic/Immunologic: Denies seasonal rhinorrhea Physical Exam Const oriented x3 and healthy appearing Orientation / Consciousness: awake HEENT normocephalic Eyes PERRL and conjunctivae normal Neck supple, no JVD and no carotid bruits Chest inspection of chest normal Resp normal respiratory effort and clear to auscultation bilaterally Cardio Palpation: normal PMI Rate: regular rate Rhythm: regular rhythm Heart Sounds: S1 normal and S2 normal Peripheral Pulses: pulses 2+ throughout GI normal to inspection, nondistended, normoactive bowel sounds Extremity normal to inspection and no clubbing, cyanosis or edema Psych mental status grossly normal Objective Data Vital Signs: Vital Signs Temp Pulse Resp BP Pulse Ox 98.4 F 70 18 147/91 H 99 01/24/21 05:20 01/24/21 07:00 01/24/21 05:20 01/24/21 05:20 01/24/21 05:20 Oxygen Delivery Method Room Air Weight: 182 lb 8.684 oz Body Mass Index (BMI) 26.9 Intake & Output: Intake and Output for Last 24 Hours 01/22/21 01/23/21 01/24/21 23:59 23:59 23:59 Intake Total 1000 / 1100 2600.00 / 2600.00 Output Total 250 / 250 Balance 1000 / 850 2350.00 / 2350.00 Lab / Micro Data Result Diagrams: 01/22/21 19:30 01/24/21 05:04 Labs: Laboratory Results - last 24 hr 01/23/21 11:15: POC Glucose 130 H 01/23/21 16:53: POC Glucose 103 01/23/21 17:26: COVID-19 (LOUISE) Not Detected 01/23/21 21:20: POC Glucose 145 H 01/24/21 05:04: Sodium 138, Potassium 4.2, Chloride 108 H, Carbon Dioxide 26.0, Anion Gap 4 L, BUN 18, Creatinine 0.86, Estim Creat Clear Calc 81.07, Est GFR (MDRD) Af Amer 114, Est GFR (MDRD) Non-Af 94, BUN/Creatinine Ratio 21.0 H, Glucose 132 H, Calcium 8.7 01/24/21 06:40: POC Glucose 135 H Cardiology Labs/Tests 01/24/21 05:04: Sodium 138, Potassium 4.2, Chloride 108 H, Carbon Dioxide 26.0, Anion Gap 4 L, BUN 18, Creatinine 0.86, Est GFR (MDRD) Af Amer 114, Est GFR (MDRD) Non-Af 94, BUN/Creatinine Ratio 21.0 H, Glucose 132 H, Calcium 8.7 Rhythm: EKG: ECHO: Stress Test: Cardiac Cath: PCI: CT Surgery: Holter monitor: EPS: PPM: CXR: Chest CT Scan: Radiography Diagnostic Testing: Radiology Impression Echocardiogram 01/22/21 22:46 Interpretation Summary Normal LV size. Left ventricular systolic function is normal. The estimated ejection fraction is 60 %. Bubble contrast study negative for right to left interatrial shunt. Stage 1 diastolic dysfunction. Ordering Physician: Agustín Good Referring Physician: Fatmata Uribe Performed By: Felicity Shrape, RDCS, RVT Brain MRI 01/23/21 09:00 IMPRESSION: Small acute infarct in the left occipital lobe. Small acute lacunar infarct in the left basal ganglia. Mild chronic small vessel ischemic gliosis. at 1220 Reported and signed by: Nina Pereyra MD Electronically Signed: Nina Pereyra MD at 12:19 EDT Tel , Service support , ADDENDUM: 01/24/21 0053 IMPRESSION: Small acute infarct in the left occipital lobe. Small acute lacunar infarct in the left basal ganglia. Mild chronic small vessel ischemic gliosis. at 1220 Reported and signed by: Nina Pereyra MD N.B. : Dr. Nathan MD, confirmed on 01/24/2021 00:46:32 (ET) that the healthcare facility has received the radiology report. Electronically Signed: Nina Pereyra MD at 12:19 EDT Tel , Service support ,
--- NOTE | 2021-01-24 09:19 | PCM.DC ---
Discharge Instructions Diet Discharge Diet: No restrictions Activity Discharge Activity: Return to Normal Activity Weight Bearing Status: Full weight bearing Follow Up Care Test Results: Test results from this visit will be discussed in further detail at your follow-up appointment, if applicable. Discharge Plan Admission Admit Date/Time: 01/23/21 17:14 Primary Reason for Your Visit: stroke Attending Provider: Jay Banks Primary Care Provider: Fatmata Uribe Consulting Providers: Werner Borjas Discharge Orders/Prescriptions Prescriptions: New acetaminophen [Tylenol] 325 mg Tablet 650 mg PO Q6H PRN PRN (Reason: Pain Score 1-10/Temp > 100.7 F) Qty: 1 RF: 0 aspirin 325 mg Tablet 325 mg PO BREAKFAST Qty: 1 RF: 0 lisinopril 40 mg tablet 40 mg PO DAILY Qty: 30 RF: 0 Continued metoprolol succinate 100 mg tablet extended release 24 hr 100 mg PO DAILY RF: 0 gabapentin 300 mg capsule 300 mg PO QHS RF: 0 montelukast 10 mg tablet 10 mg PO DAILY RF: 0 fluticasone propionate 50 mcg/actuation spray,suspension 1 spray INTRANASAL BID RF: 0 metformin 500 mg tablet extended release 24 hr 500 mg PO DAILY RF: 0 colestipol 1 gram tablet 1 g PO BID RF: 0 Dexilant 60 mg capsule,biphase delayed releas 60 mg PO DAILY RF: 0 Discontinued lisinopril-hydrochlorothiazide 20-12.5 mg tablet 1 tab PO DAILY RF: 0 meloxicam 7.5 mg tablet 7.5 mg PO DAILY RF: 0 Referrals / Follow Up: Werner Borjas MD [STAFF PHYSICIAN] - See Referral Note (in 6 weeks) Fatmata Uribe MD [Primary Care Provider] - Within 2 Weeks Disposition Disposition (needs filled in before D/C Order can be placed): Home, Self Care
--- NOTE | 2021-01-24 09:53 | CASEMGMT ---
PT/OT recommends no further therapy for pt. Pt states is back to baseline. CM to follow for any further discharge planning/needs. Dav GOULD CM
--- NOTE | 2021-01-24 10:30 | CASEMGMT ---
RN CM Face to Face with patient for initial transition planning/care coordination assessment. RN CM introduced self and role at [facility]. Patient lying in bed, alert and oriented. Patient willing to participate in assessment and is able to answer all questions appropriately. Care providers, pharmacy, and demographics verified. Patient wishes to discharge home, denies need for home health at this time. Patient states he has no further needs or concerns at this time. CM to follow for discharge planning needs that may arise. PCP: Jojo Specialists: Lissa gastro; Shahrzad, urologist [facility]: yes Living Will/HPOA: yes, Abigail HURTADO: Living Arrangements: Patient lives with in a 2 story home with bed and bath on first floor. Patient states he is independent at home. Transportation: self/ DME/HHC: Patient states he has hospital bed and walker at home. Patient denies previous HHC. Disposition Plan: Patient to discharge home with family support and follow-up plans in place. Ladi ABBOTT, RN, CM
[2021-01-24] MEDS: Montelukast 10 MG Tablet PO (11:34)
[2021-01-24] MEDS: Pantoprazole Sodium 40 MG Tablet PO (11:34)
[2021-01-24] MEDS: Aspirin 325 MG Tablet PO (11:34)
[2021-01-24] MEDS: Fluticasone 0.05% 1 SPRAY NASAL.SRY NASAL (11:35)
[2021-01-24 11:41] LABS: Bedside Glucose 126 mg/dL (70-110)
--- NOTE | 2021-01-27 09:28 | DS.PCM_ITS ---
Providers Date of Admission: 01/23/21 Date of Discharge: 01/24/21 Primary Care Physician: Dr. Fatmata Uribe MD Consultations 01/23/21 17:14 Consult: Cardiology Routine Consulting Provider: Werner Borjas Reason for Consult: Need for ROMMEL and possible loop recorder EMERGENT Consult: No MD Notified: Yes Date Notified: 01/23/21 Time Notified: 17:14 Method of Notification: Verbal Method of Consult:: In-Person Reason For Visit: STROKE LIKE SYMPTOMS Diagnosis Discharge Diagnosis (1) Loss of part of visual field: Status: Acute Code(s): H53.40 - Unspecified visual field defects Plan: 1. 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 Medications at Discharge Home Medications Dexilant 60 mg PO DAILY 01/22/21 colestipol 1 g PO BID 01/22/21 fluticasone propionate 1 spray INTRANASAL BID 01/22/21 gabapentin 300 mg PO QHS 01/22/21 metformin 500 mg PO DAILY 01/22/21 metoprolol succinate 100 mg PO DAILY 01/22/21 montelukast 10 mg PO DAILY 01/22/21 acetaminophen [Tylenol] 650 mg PO Q6H PRN PRN #1 tab 01/24/21 aspirin 325 mg PO BREAKFAST #1 tab 01/24/21 lisinopril 40 mg PO DAILY #30 tab 01/24/21 Hospital Course Operations None Procedures 2-D Echocardiogram, Transesophageal Echo and Transthoracic echo Summary of Care Provided Minutes Spent on Discharge: 34 Hospital Course: This 70-year-old white male was seen in the emergency room at [facility] with complaints of right eye visual deficits and headache. Work-up in the emergency room included a CTA which showed no acute findings. A stroke alert was not called by the emergency room doctor due to the length of time the patient had symptoms. Patient was admitted to PCU, he underwent an MRI of the brain which showed acu te strokes in the left occipital area and a left-sided lacunar infarct in the basal ganglia. Patient underwent an echocardiogram that was unremarkable, he was seen in consultation by teleneurology who recommended a ROMMEL and possibly loop recorder at the time of discharge from the hospital. It was felt that the strokes were embolic in nature and he felt that the patient's right eye visual problems was due to an embolism to the eye. It was recommended that the patient take aspirin 325 mg daily. Patient was seen in consultation by cardiology, patient's ROMMEL was unremarkable, he was set up with a 30-day Holter monitor at the time of discharge from the hospital. Patient had a lipid profile during his hospitalization which showed a low LDL cholesterol, statins were not indicated and the patient preferred not to go on a statin. Patient was seen by PT and OT and it was not recommended that outpatient PT or OT be carried out. On 01/24/2021, patient was seen and examined: On examination he appeared in good health and spirits. Vital signs as documented. Skin warm and dry and without overt rashes. Neck without JVD, neck was supple, trachea midline, thyroid was normal. Lungs clear bilaterally, normal air movement was noted. Heart exam notable for regular rhythm, normal sounds and absence of murmurs, rubs or gallops. Abdomen unremarkable and without evidence of organomegaly, masses, or a bdominal aortic enlargement. Bowel sounds are present, abdomen is not distended. Extremities nonedematous, no cyanosis was noted, no clubbing was noted. Neuro: Cranial nerves II through XII are grossly intact, no focal motor deficits were noted, sensation to light touch and pinprick intact, motor exam 5/5 throughout. Psych: Patient is alert and oriented x3, he does not appear anxious or depressed, he does not appear agitated. Patient appears stable for discharge on 01/24/2021. Weight / BMI Weight Weight: 82.8 kg Body Mass Index (BMI) 26.9 ABG / Lab / Microbiology Data Result Diagrams: 01/22/21 19:30 01/24/21 05:04 D/C Instructions Discharge Diet: No restrictions Weight Bearing Status: Full weight bearing Meaningful Use Info Meaningful Use Diagnoses (Choose all that apply): Ischemic CVA CVA Therapy Assessed for PT,OT and/or ST?: Yes Ischemic Stroke Antithrombotic order at d/c?: Yes Dx of Atrial fib/flutter?: No Anticoagulant at discharge?: No Reason anticoagulant not ordered: Medical Contraindication Statins at discharge?: No Reason Statin not ordered: Treatment not Indicated Primary Dx Acute Ischemic CVA?: Yes IV tPA ordered during stay?: No Reason IV t-PA not ordered: Treatment not Indicated Discharge Plan Admission Admit Date/Time: 01/23/21 17:14 Primary Reason for Your Visit: stroke Attending Provider: Jay Banks Primary Care Provider: Fatmata Uribe Consulting Providers: Werner Borjas Discharge Orders/Prescriptions Prescriptions: New acetaminophen [Tylenol] 325 mg Tablet 650 mg PO Q6H PRN PRN (Reason: Pain Score 1-10/Temp > 100.7 F) Qty: 1 RF: 0 aspirin 325 mg Tablet 325 mg PO BREAKFAST Qty: 1 RF: 0 lisinopril 40 mg tablet 40 mg PO DAILY Qty: 30 RF: 0 Continued metoprolol succinate 100 mg tablet extended release 24 hr 100 mg PO DAILY RF: 0 gabapentin 300 mg capsule 300 mg PO QHS RF: 0 montelukast 10 mg tablet 10 mg PO DAILY RF: 0 fluticasone propionate 50 mcg/actuation spray,suspension 1 spray INTRANASAL BID RF: 0 metformin 500 mg tablet extended release 24 hr 500 mg PO DAILY RF: 0 colestipol 1 gram tablet 1 g PO BID RF: 0 Dexilant 60 mg capsule,biphase delayed releas 60 mg PO DAILY RF: 0 Discontinued lisinopril-hydrochlorothiazide 20-12.5 mg tablet 1 tab PO DAILY RF: 0 meloxicam 7.5 mg tablet 7.5 mg PO DAILY RF: 0 Referrals / Follow Up: Werner Borjas MD [STAFF PHYSICIAN] - See Referral Note (in 6 weeks) Fatmata Uribe MD [Primary Care Provider] - Within 2 Weeks Disposition Disposition (needs filled in before D/C Order can be placed): Home, Self Care Charges/Coding Visit Charges Inpatient E&M: 22504 Disch Hosp
== END 2021-01-24 12:50 | disposition home or self-care (01) | DRG 65 ==
LOC: ED 19:58 → PCU 22:19
PROVIDERS: Admitting Provider Hospitalist; Emergency Provider Emergency Medicine; PCP Family Medicine; Visit Provider Internal Medicine
DX: I63.81 Other cerebral infarction due to occlusion or stenosis of small artery (principal); N17.9 Acute kidney failure, unspecified; G44.201 Tension-type headache, unspecified, intractable; I10 Essential (primary) hypertension; H53.8 Other visual disturbances; E11.9 Type 2 diabetes mellitus without complications; H57.04 Mydriasis; Z88.8 Allergy status to other drugs, medicaments and biological substances; Z79.82 Long term (current) use of aspirin; Z98.49 Cataract extraction status, unspecified eye; R77.8 Other specified abnormalities of plasma proteins
CPT/HCPCS: 36415; 70450; 70496; 70498; 70551; 71045; 80048; 80053; 80061; 82570; 82962; 83036; 84300; 84484; 85025; 85610; 85730; 87635; 93005; 93306; 93312; 93320; 93325; 94762; 97161; 97166; 97802; 99285; J7030; J7040; Q9967; U0005; A4216; U0003

== ENCOUNTER → 2021-03-27 09:38 | Outpatient (CLI) | payer MEDICARE, BC, SELFPAY ==
--- NOTE | 2021-03-27 09:40 | CDU_ITS ---
Reason For Study: retinal artery occlusion Rt. Velocities/BP Lt. Velocities/BP Prox CCA 78.9/9.5 cm/sec. Prox CCA 75.7/12.0 cm/sec. Mid CCA 80.7/11.3 cm/sec. Mid CCA 81.2/10.9 cm/sec. Dist CCA 69.8/13.2 cm/sec. Dist CCA 65.8/13.1 cm/sec. Prox ICA 57.1/15.4 cm/sec. Prox ICA 55.9/9.8 cm/sec. Mid ICA 69.9/22.0 cm/sec. Mid ICA 69.1/19.7 cm/sec. Dist ICA 82.1/24.4 cm/sec. Dist ICA 102.7/37.6 cm/sec. Rt. ICA/CCA = 82.1/80.7=1.0. Lt. ICA/CCA = 102.7/81.2=1.3. Prox ECA 59.3/6.4 cm/sec. Prox ECA 74.6/7.6 cm/sec. Rt. Vert. 34.9/9.4 cm/sec. Lt. Vert. 56.4/9.7 cm/sec. Right Extracranial There is intimal thickening but no significant atherosclerotic plaque noted in the right common carotid artery. There is heterogeneous, smooth atherosclerotic plaque noted in the right internal carotid artery. There is no significant atherosclerotic plaque noted in the right external carotid artery. Antegrade flow is noted in the right vertebral artery. Left Extracranial There is intimal thickening but no significant atherosclerotic plaque noted in the left common carotid artery. There is homogeneous, smooth atherosclerotic plaque noted in the left internal carotid artery. There is no significant atherosclerotic plaque noted in the left external carotid artery. Antegrade flow is noted in the left vertebral artery. Procedure Carotid Duplex [id number]. This is a Carotid Duplex examination using B-mode, color flow and specral Doppler. Exam performed in department. VL/Carotid Duplex Ultrasound Interpretation Summary Minimal smooth plaque at the proximal right internal carotid artery with less t giordano 50% stenosis Less than 50% stenosis right external carotid artery Minimal smooth plaque at the proximal left internal carotid artery with less th an 50% stenosis Less than 50% stenosis left external carotid artery Patent and antegrade vertebral arteries bilaterally No change from a previous blood flow screening examination of June 09, 2013 Ordering Physician: Ric Barber Referring Physician: Fatmata Uribe Performed By: Ana Ferrer, ODALIS, RVT
== END ==
PROVIDERS: PCP Family Medicine; Referring Provider Ophthalmology; Visit Provider Ophthalmology
DX: H34.11 Central retinal artery occlusion, right eye (principal)
CPT/HCPCS: 93880

== ENCOUNTER 2021-07-04 08:45 | Outpatient (CLI) | payer MEDICARE, BC, SELFPAY ==
[2021-07-04 10:24] LABS: Vitamin B12 1069 pg/mL (211-911)
[2021-07-04 11:04] LABS: Cholesterol 145 mg/dL (200); High Density Lipoprotein 42 mg/dL; Thyroid Stim Hormone (TSH) 1.27 uIU/mL (0.358-3.74); Triglycerides 216 mg/dL; Very Low Density Lipoprotein 43 mg/dL (5-40)
[2021-07-05 17:07] LABS: Free Kappa Light Chains 20.1 mg/L (3.3-19.4); Free Lambda Light Chains 16.5 mg/L (5.7-26.3)
== END 2021-07-04 23:59 | disposition short-term general hospital (02) ==
LOC: MTLAB 08:47
PROVIDERS: PCP Family Medicine; Referring Provider Psychiatry & Neurology Neurology; Visit Provider Psychiatry & Neurology Neurology
DX: E11.69 Type 2 diabetes mellitus with other specified complication (principal); E78.5 Hyperlipidemia, unspecified; G62.9 Polyneuropathy, unspecified
CPT/HCPCS: 36415; 80061; 82607; 82746; 83883; 84443

== ENCOUNTER 2021-08-22 14:05 | Outpatient (CLI) | payer MEDICARE, BC, SELFPAY ==
[2021-08-25 14:10] LABS: Albumin 3.9 g/dL (2.9-4.4); Alpha-1-Globulins 0.2 g/dL (0.0-0.4); Alpha-2-Globulins 0.8 g/dL (0.4-1.0); Gamma Globulin 0.9 g/dL (0.4-1.8); Immunoglobulin A 402 mg/dL (61-437); Immunoglobulin G 918 mg/dL (603-1613); Immunoglobulin M 48 mg/dL (20-172); PROEL- TOTAL PROTEIN 7.1 g/dL (6.0-8.5)
== END 2021-08-22 23:59 | disposition home or self-care (01) ==
LOC: MTLAB 14:10
PROVIDERS: PCP Family Medicine; Referring Provider Psychiatry & Neurology Neurology; Visit Provider Psychiatry & Neurology Neurology
DX: G62.9 Polyneuropathy, unspecified (principal)
CPT/HCPCS: 36415; 82784; 84165; 86334; 86335

== ENCOUNTER → 2021-12-21 | Outpatient (CLI) | payer MEDICARE, BC, SELFPAY ==
[2021-12-21 10:31] LABS: AST(SGOT) 16 U/L (15-37); Alanine Aminotransfer ALT/SGPT 32 U/L (16-61); Albumin, Serum 3.5 g/dL (3.2-5.0); Alkaline Phosphatase 86 U/L (45-117); Bilirubin, Direct 0.12 mg/dL (0.00-0.30); Cholesterol 112 mg/dL (200); Globulin 3.5 g/dL (2.2-4.2); High Density Lipoprotein 37 mg/dL; Triglycerides 166 mg/dL; Very Low Density Lipoprotein 33 mg/dL (5-40)
== END | disposition home or self-care (01) ==
LOC: MTLAB 07:08
PROVIDERS: PCP Family Medicine; Referring Provider Psychiatry & Neurology Neurology; Visit Provider Psychiatry & Neurology Neurology
DX: E78.5 Hyperlipidemia, unspecified (principal)
CPT/HCPCS: 36415; 80061; 80076

== ENCOUNTER → 2023-07-12 | Outpatient (CLI) | payer MEDICARE, BC, SELFPAY ==
--- NOTE | 2023-07-12 13:39 | CDU_ITS ---
Reason For Study: Central retinal occlusion right eye Rt. Velocities/BP Lt. Velocities/BP Prox CCA 94.8/11.6 cm/sec. Prox CCA 83.4/9.7 cm/sec. Mid CCA 76.8/11.6 cm/sec. Mid CCA 74/11.6 cm/sec. Dist CCA 65.5/6.9 cm/sec. Dist CCA 62.6/8.8 cm/sec. Prox ICA 36.2/9.7 cm/sec. Prox ICA 28.6/6.9 cm/sec. Mid ICA 66.4/17.3 cm/sec. Mid ICA 64.5/19.2 cm/sec. Dist ICA 52.2/14.5 cm/sec. Dist ICA 59.8/20.1 cm/sec. Rt. ICA/CCA = 0.86. Lt. ICA/CCA = 0.87. Prox ECA 97.1 cm/sec. Prox ECA 62.6 cm/sec. Rt. Vert. 57.9/9.7 cm/sec. Lt. Vert. 48.5/6.9 cm/sec. Right Extracranial There is intimal thickening but no significant atherosclerotic plaque noted in the right common carotid artery. There is homogeneous, smooth atherosclerotic plaque noted in the right internal carotid artery. There is intimal thickening but no significant atherosclerotic plaque noted in the right external carotid artery. Antegrade flow is noted in the right vertebral artery. Left Extracranial There is homogeneous, smooth atherosclerotic plaque noted in the left common carotid artery. There is heterogeneous, irregular atherosclerotic plaque noted in the left internal carotid artery. There is heterogeneous, irregular atherosclerotic plaque noted in the left external carotid artery. Antegrade flow is noted in the left vertebral artery. Procedure Carotid Duplex [id number]. This is a Carotid Duplex examination using B-mode, color flow and specral Doppler. Exam performed in department. VL/Carotid Duplex Ultrasound Interpretation Summary Homogeneous smooth plaque at the proximal right internal carotid artery with le ss than 50% stenosis Less than 50% stenosis right external carotid artery Minimal irregular plaque at the proximal left internal carotid artery with less than 50% stenosis Less than 50% stenosis left external carotid artery Patent and antegrade vertebral arteries bilaterally Ordering Physician: Ric Barber Referring Physician: Fatmata Uribe Performed By: Ladi Teixeira RVT
--- OUTSIDE RECORDS SUMMARY | 2023-07-12 14:46 | XMS RPT_ITS | CCD ---
Author Name Unknown Address [address] [place] [address] Organization [facility] Care Team Providers [employer] Name Role Phone Fatmata Kwon Primary Care Provider MARILEE MAHMOOD Attending Unavailable MARILEE MAHMOOD Referring Unavailable FATMATA KWON Primary Care NU Kirby Admitting Unavailable FATMATA KWON Primary Care NU Kirby Attending Unavailable NU ROWLAND Referring Unavailable FATMATA KWON Primary Care Pascalev[place] lable Conchita, Avirup Unavailable Unavailable Fatmata Kwon Unavailable Unavailable Fatmata Kwon Unavailable Unavailab le Conchita, Avirup Unavailable Unavailable Markham II, Greg Unavailable Unavailable Lissa, Eleazar Unavailable Unavailable Nu Rowland Unavailable Unavailable Marilee Mahmood Unavailable Unavailable Markham II, Greg Unavailable Unavailable MARILEE MAHMOOD Attending Unavailable FATMATA KWON Primary Care MARILEE Gabriel Attending Unavailable FATMATA KWON Primary Care NU Kirby Attending Unavailable FATMATA KWON Primary Care MARILEE Gabriel Attending Unavailable FATMATA KWON Primary Care Fatmata Guajardo Primary Care Provider Fatmata Kwon Unavailable Unavailable Unavailable Unavailable Unavailable Fatmata Kwon Unavailable Lexii Mahoney Unavailable Unavailable Fatmata Kwon Primary Care Terry Castaneda, Ms. Mary Bledsoe Attending Lexii Mack Attending Unavailable Fatmata Kwon Primary Care Fatmata Guajardo MD Primary Care [facility] er Fatmata Kwon MD Primary Care Provider Fatmata Kwon MD Unavailable Unavailable Unavailable Jojo, Dr. Fatmata Wing Referring Un available Jojo, Dr. Fatmata Wing Attending Un available Jojo, Dr. Fatmata Wing Primary Care Un available Jojo, Dr. Fatmata Wing Primary Care Un available MD GREG MARKHAM Referring UnavailMD GREG Felder Attending Unavailabl e FATMATA KWON Attending Unavailab le FATMATA KWON Primary Care Unavailab elif Allergies Allergy Classification Reported Allergen(s) Allergy Type Date of Onset Reaction(s) Facility Corticosteroids (4 sources) predniSONE; Translations: [predniSONE] Drug Allergy Unknown [facility] Work Phone: (20 sources) predniSONE; Translations: [Unknown] Drug Allergy 08-12-2018 Hives, Other [facility] Medications Current Medications Medication Drug Class(es) Dates Sig (Normalized) Sig (Original) ascorbic acid 1000 mg oral tablet (13 sources) Vitamin C take 1 tablet by mouth once daily ascorbic acid, vitamin C, (vitamin C) 1000 MG tablet Take 1,000 mg by mouth daily . 0 Active brimonidine tartrate 2 mg/ml ophthalmic solution (5 sources) alpha-Adrenergic Agonist Start: 12-22-2022 take 1 drop(s) into the eye(s) three times daily brimonidine (AlphaGAN P) 0.2 % ophthalmic solution Instill 1 drop into right eye three times a day 0 12/22/2022 Active Completed/Discontinued Medications Medication Drug Class(es) Dates Sig (Normalized) Sig (Original) acetaminophen 500 mg oral tablet (20 sources) take 2 tablets by mouth every four hours as needed Acetaminophen 500 MG Oral Tablet TAKE 2 TABLET Every 4 hours PRN Quantity: 0 Refills: 0 Ordered: 04-Jun-2019 DO Active acetaZOLAMIDE 250 mg oral tablet (10 sources) Carbonic Anhydrase Inhibitor Start: 08-16-2021 acetaZOLAMIDE 250 MG Oral Tablet Quantity: 0 Refills: 0 Ordered: 16-Aug-2021 Fatmata Kwon MD Start : 16-Aug-2021 Active [id number] 200 actuat albuterol 0.09 mg/actuat metered dose inhaler (20 sources) beta2-Adrenergic Agonist Start: 02-23-2021 take 1 puff(s) by inhalation every four hours as needed Albuterol Sulfate HFA 108 (90 Base) MCG/ACT Inhalation Aerosol Solution INHALE 1 PUFF EVERY 4 HOURS NEEDED. Quantity: 1 Refills: 2 Ordered: 16-Aug-2022 Fatmata Kwon MD Start : 23-Feb-2021 Active Problems Active Problems Problem Classification Problem Date Documented Date Episodic/Chronic Asthma (20 sources) Cough variant asthma; Translations: [Reactive airway disease] Onset: 04-27-2019 04-27-2019 Chronic Calculus of urinary tract (20 sources) Kidney stone; Translations: [Calculus of kidney] Episodic Coronary atherosclerosis and other heart disease (20 sources) Coronary arteriosclerosis; Translations: [Coronary arteriosclerosis in [place] artery] Onset: 10-12-2022 02-21-2023 Chronic Diabetes mellitus with complications (20 sources) Type 2 diabetes mellitus well controlled; Translations: [Diabetes with peripheral circulatory disorders, type II or unspecified type, not stated as uncontrolled] Onset: 10-12-2022 02-21-2023 Chronic Past or Other Problems Problem Classification Problem Date Documented Da te Episodic/Chronic Other connective tissue disease (3 sources) Other specified soft tissue disorders; Translations: [Other specified soft tissue disorders] Onset: 01-11-2022 Episodic Other ear and sense organ disorders (20 sources) Otitis externa; Translations: [Infective otitis externa, unspecified] Resolved: 08-12-2019 Chronic Other lower respiratory disease (12 sources) Cough; Translations: [Cough] Onset: 11-12-2018 11-12-2018 Episodic Residual codes; unclassified (20 sources) History of clinical finding in subject; Translations: [Personal history of other specified diseases] Resolved: 08-16-2021 Episodic Unclassified (20 sources) Patient encounter status; Translations: [History of Screening for colorectal cancer] Unclassified (5 sources) History of clinical finding in subject; Translations: [History of shortness of breath] Unclassified (1 source) Onset: 02-21-2023 02-21-2023 NEGATED: Highlighted row has not occurred!Residual codes; unclassified (20 sources) Disease Episodic Results Test Name Value Interpretation Reference Range Facil ity Vital Signs Date Time Vital Sign Value Performing Clinician Facility 02-27-2023 08:41-0400 Body height 175.26 cm Fatmaatcindy Kwon Work Phone: TU-Wsuhztg-Zuhiybn Work Phone: 02-27-2023 08:41-0400 Body mass index (BMI) [Ratio] 25.84 kg/m2 Fatmata Kwon Work Phone: DN-Dtudtkc-Oqhgffx Work Phone: 02-27-2023 08:41-0400 Body surface area Derived from formula 1.95 m2 Fatmata Kwon Work Phone: SZ-Fspzudl-Slzqodu Work Phone: 02-27-2023 08:41-0400 Body weight 79.38 kg Fatmatatoo Perezmichael Work Phone: MT-Kngerxj-Dqxzeuf Work Phone: 02-27-2023 08:41-0400 Respiratory rate 16 /min Fatmata Kwon Work Phone: QL-Tuknafc-Sridwek Work Phone: 02-21-2023 09:35-0400 Body height 175.3 cm Fatmata Kwon MD Work Phone: [facility] 02-21-2023 09:35-0400 Body mass index (BMI) [Ratio] 25.52 kg/m2 Fatmata Kwon MD Work Phone: [facility] 02-21-2023 09:35-0400 Body weight 78.38 kg Fatmata Kwon MD Work Phone: [facility] 02-21-2023 09:35-0400 Diastolic blood pressure 60 mm[Hg] Fatmata Kwon MD Work Phone: [facility] 02-21-2023 09:35-0400 Heart rate 68 /min Fatmata Kwon MD Work Phone: [facility] 02-21-2023 09:35-0400 SaO2% (BldA) [Mass fraction] 98 % Fatmata Kwon MD Work Phone: [facility] 02-21-2023 09:35-0400 Systolic blood pressure 102 mm[Hg] Fatmata Kwon MD Work Phone: [facility] 06-01-2022 12:02-0500 Body height 170 cm Fatmata Kwon Other Phone: [facility] 06-01-2022 12:02-0500 Body temperature 97.88 [degF] Fatmata Kwon Other Phone: [facility] 06-01-2022 12:02-0500 Diastolic blood pressure 87 mm[Hg] Fatmata Kwon Other Phone: [facility] 06-01-2022 12:02-0500 Heart rate 74 /min Fatmata Kwon Other Phone: [facility] 06-01-2022 12:02-0500 Respiratory rate 14 /min Fatmata Kwon Other Phone: [facility] 06-01-2022 12:02-0500 SaO2% (BldA) [Mass fraction] 98 % Fatmata Kwon Other Phone: [facility] 06-01-2022 12:02-0500 Systolic blood pressure 137 mm[Hg] Fatmata Kwon Other Phone: [facility] 02-21-2022 07:53-0400 Body mass index (BMI) [Ratio] 26.18 kg/m2 Fatmata RodriguezPandaBed Work Phone: NB-Oksascd-Lhdufck Work Phone: 02-21-2022 07:53-0400 Body surface area Derived from formula 1.96 m2 Fatmata PerezRetail Optimization Work Phone: WD-Cwnloyo-Slyvqqw Work Phone: 02-21-2022 07:53-0400 Body weight 80.4 kg Fatmata RodriguezPandaBed Work Phone: MS-Ttjsvfl-Yieykxc Work Phone: 02-21-2022 07:53-0400 Diastolic blood pressure 84 mm[Hg] Fatmata RodriguezPandaBed Work Phone: VY-Udebhhn-Jsiqnxv Work Phone: 02-21-2022 07:53-0400 Heart rate 80 /min Fatmata RodriguezPandaBed Work Phone: BH-Hjtqxpv-Lrlvefz Work Phone: 02-21-2022 07:53-0400 Systolic blood pressure 142 mm[Hg] Fatmata PerezRetail Optimization Work Phone: NZ-Medyxjb-Lqpokhn Work Phone: 02-15-2022 09:22-0400 Body height 175.26 cm Fatmata RodriguezPandaBed [facility] Phone: [facility] Work Phone: 02-15-2022 09:22-0400 Body mass index (BMI) [Ratio] 25.84 kg/m2 Fatmata RodriguezPandaBed Work Phone: [facility] Work Phone: 02-15-2022 09:22-0400 Body surface area Derived from formula 1.95 m2 Fatmata RodriguezPandaBed Work Phone: [facility] Work Phone: 02-15-2022 09:22-0400 Body weight 79.38 kg Fatmata Kwon Work Phone: [facility] [employer] [facility] Work Phone: 02-15-2022 09:22-0400 Diastolic blood pressure 78 mm[Hg] Fatmata Kwon Work Phone: [facility] Work Phone: 02-15-2022 09:22-0400 Heart rate 78 /min Fatmata Kwon Work Phone: [facility] Work Phone: 02-15-2022 09:22-0400 SaO2% (BldA) [Mass fraction] 99 % Fatmata Kwon Work Phone: [facility] Work Phone: 02-15-2022 09:22-0400 Systolic blood pressure 124 mm[Hg] Fatmata Kwon Work Phone: [facility] Work Phone: 01-18-2022 07:40-0400 Body height 175.26 cm Fatmata Kwon Work Phone: [facility] [employer] [facility] Work Phone: 01-18-2022 07:40-0400 Body mass index (BMI) [Ratio] 25.48 kg/m2 Fatmata Kwon Work Phone: [facility] [employer] [facility] Work Phone: 01-18-2022 07:40-0400 Body surface area Derived from formula 1.94 m2 Fatmata Kwon Work Phone: [facility] [employer] [facility] Work Phone: 01-18-2022 07:40-0400 Body weight 78.27 kg Fatmata Kwon Work Phone: [facility] Work Phone: 01-18-2022 07:40-0400 Diastolic blood pressure 60 mm[Hg] Fatmata Kwon Work Phone: [facility] Work Phone: 01-18-2022 07:40-0400 Heart rate 78 /min Fatmata Kwon Work Phone: [facility] Work Phone: 01-18-2022 07:40-0400 Systolic blood pressure 104 mm[Hg] Fatmata Kwon Work Phone: [facility] Work Phone: 01-11-2022 09:47-0400 Body height 175.26 cm Fatmata Kwon Work Phone: [facility] Work Phone: 01-11-2022 09:47-0400 Body mass index (BMI) [Ratio] 25.31 kg/m2 Fatmata Kwon Work Phone: [facility] Work Phone: 01-11-2022 09:47-0400 Body surface area Derived from formula 1.93 m2 Fatmata Kwon Work Phone: [facility] Work Phone: 01-11-2022 09:47-0400 Body weight 77.74 kg Fatmata Kwon Work Phone: [facility] Work Phone: 01-11-2022 09:47-0400 Diastolic blood pressure 60 mm[Hg] Fatmata Kwon Work Phone: [facility] Work Phone: 01-11-2022 09:47-0400 Heart rate 78 /min Fatmata Kwon Work Phone: [facility] Work Phone: 01-11-2022 09:47-0400 SaO2% (BldA) [Mass fraction] 99 % Fatmata Kwon Work Phone: [facility] Work Phone: 01-11-2022 09:47-0400 Systolic blood pressure 100 mm[Hg] Fatmata Kwon Work Phone: [facility] Work Phone: 08-16-2021 09:31-0500 Body height 175.26 cm Fatmata Kwon Work Phone: [facility] Work Phone: 08-16-2021 09:31-0500 Body mass index (BMI) [Ratio] 26.16 kg/m2 Fatmata Kwon Work Phone: [facility] Work Phone: 08-16-2021 09:31-0500 Body surface area Derived from formula 1.96 m2 Fatmata Kwon Work Phone: [facility] Work Phone: 08-16-2021 09:31-0500 Body temperature 98 [degF] Fatmata Kwon Work Phone: [facility] Work Phone: 08-16-2021 09:31-0500 Body weight 80.35 kg Fatmata Kwon Work Phone: [facility] Work Phone: 08-16-2021 09:31-0500 Diastolic blood pressure 68 mm[Hg] Fatmata Kwon Work Phone: [facility] Work Phone: 08-16-2021 09:31-0500 Heart rate 80 /min Fatmata Kwon Work Phone: [facility] Work Phone: 08-16-2021 09:31-0500 SaO2% (BldA) [Mass fraction] 98 % Fatmata Kwon Work Phone: [facility] Work Phone: 08-16-2021 09:31-0500 Systolic blood pressure 122 mm[Hg] Fatmata Kwon Work Phone: [facility] Work Phone: 02-23-2021 09:19-0400 Body height 175.26 cm Fatmata Kwon Work Phone: [facility] Work Phone: 02-23-2021 09:19-0400 Body mass index (BMI) [Ratio] 26.63 kg/m2 Fatmata Kwon Work Phone: [facility] Work Phone: 02-23-2021 09:19-0400 Body surface area Derived from formula 1.98 m2 Fatmata Kwon Work Phone: [facility] Work Phone: 02-23-2021 09:19-0400 Body temperature 98 [degF] Fatmata Kwon Work Phone: [facility] Work Phone: 02-23-2021 09:19-0400 Body weight 81.79 kg Fatmata Kwon Work Phone: [facility] Work Phone: 02-23-2021 09:19-0400 Diastolic blood pressure 88 mm[Hg] Fatmata Kwon Work Phone: [facility] Work Phone: 02-23-2021 09:19-0400 Heart rate 78 /min Fatmata Kwon Work Phone: [facility] Work Phone: 02-23-2021 09:19-0400 SaO2% (BldA) [Mass fraction] 98 % [facility] Work Phone: [facility] Work Phone: 02-23-2021 09:19-0400 Systolic blood pressure 132 mm[Hg] Fatmata Kwon Work Phone: [facility] Work Phone: 02-08-2021 09:10-0400 Body height 175.26 cm [facility] Work Phone: [facility] Work Phone: 02-08-2021 09:10-0400 Body mass index (BMI) [Ratio] 26.58 kg/m2 [facility] Work Phone: [facility] Work Phone: 02-08-2021 09:10-0400 Body surface area Derived from formula 1.98 m2 [facility] Work Phone: [facility] Work Phone: 02-08-2021 09:10-0400 Body weight 81.65 kg [facility] Work Phone: [facility] Work Phone: 02-08-2021 09:10-0400 Diastolic blood pressure 76 mm[Hg] Fatmata Kwon Work Phone: VG[facility]Yshvynv-Huaeuzz Work Phone: 02-08-2021 09:10-0400 Heart rate 76 /min Fatmata Kwon Work Phone: UG-Yjgmzsq-Rckhbvb Work Phone: 02-08-2021 09:10-0400 Systolic blood pressure 122 mm[Hg] Fatmata Kwon Work Phone: OE-Qbvzmvl-Rjkwtso Work Phone: 02-11-2020 12:22-0400 BMI (Body Mass Index) 27.68 kg/m2 Fatmata Kwon [facility] Work Phone: 02-11-2020 12:22-0400 Body Temperature 95.3 [degF] Fatmata Kwon -[facility] Work Phone: 02-11-2020 12:22-0400 Body weight 85.02 kg Fatmata Kwon [facility] Work Phone: 02-11-2020 12:22-0400 BP Diastolic 70 mm[Hg] Fatmata Kwon -[facility] Work Phone: 02-11-2020 12:22-0400 BP Systolic 112 mm[Hg] Fatmata Kwon -[facility] Work Phone: 02-11-2020 12:22-0400 BSA (Body Surface Area) 2.01 m2 Fatmata Kwon [facility] Work Phone: 02-11-2020 12:22-0400 Height 175.26 cm Fatmata Kwon [facility] Work Phone: 02-11-2020 12:22-0400 Pulse (Heart Rate) 83 /min Fatmata Kwon [facility] Work Phone: 01-20-2020 09:45-0400 BMI (Body Mass Index) 27.84 kg/m2 Greg Markham II [facility] Work Phone: 01-20-2020 09:45-0400 Body weight 85.5 kg Greg Markham II [facility] Work Phone: 01-20-2020 09:45-0400 BP Diastolic 76 mm[Hg] Greg Markham II [facility] Work Phone: 01-20-2020 09:45-0400 BP Systolic 127 mm[Hg] Greg Markham II -[facility] Work Phone: 01-20-2020 09:45-0400 BSA (Body Surface Area) 2.01 m2 Greg Markham II [facility] Work Phone: 01-20-2020 09:45-0400 Height 175.26 cm Greg Markham II [facility] Work Phone: 01-20-2020 09:45-0400 Pulse (Heart Rate) 69 /min Greg Markham II [facility] Work Phone: 12-28-2019 09:33-0400 BMI (Body Mass Index) 28.56 kg/m2 Greg Markham II BJ[facility]Epodrsq-Kowanxd Work Phone: 12-28-2019 09:33-0400 Body weight 87.71 kg Greg Markham II GV-Akhecsy-Rgopz nd Work Phone: 12-28-2019 09:33-0400 BP Diastolic 54 mm[Hg] Greg Markham II XU-Roctfql-Eaoqt nd Work Phone: 12-28-2019 09:33-0400 BP Systolic 152 mm[Hg] Greg Markham II OU-Cktmpqz-Aikyn nd Work Phone: 12-28-2019 09:33-0400 BSA (Body Surface Area) 2.04 m2 Greg Markham II GY-Ceyxbvx-Qouzveu Work Phone: 12-28-2019 09:33-0400 Height 175.26 cm Greg Markham II CP-Ioffrir-Qrnje nd Work Phone: 12-28-2019 09:33-0400 Pulse (Heart Rate) 74 /min Greg Markham II ZB-Enlathk-Ug hland Work Phone: 11-30-2019 11:06-0400 BMI (Body Mass Index) 29.02 kg/m2 [facility] Work Phone: 11-30-2019 11:06-0400 Body Temperature 97.7 [degF] [facility] Work Phone: 11-30-2019 11:06-0400 Body weight 89.13 kg [facility] Work Phone: 11-30-2019 11:06-0400 BP Diastolic 76 mm[Hg] [facility] Work Phone: Encounters Encounter Date Encounter Type Care Provider Facility Start: 02-28-2023 Chart Update Fatmata pfeiffer Work Phone: VL-Tuiabuv-Petcugow [facility] 232 DO Work Phone: Start: 02-27-2023 Office outpatient vi sit 25 minutes Fatmata Kwon Work Phone: ZN-Gyafsnn-Mwufyto Work Phone: Start: 02-27-[address] Fatmata Kwon Facility:[id number] Start: 02-21-2023 End: 02-21-2023 ambulatory FATMATA KWON [facility] Start: 02-21-2023 End: 02-21-2023 Encounter for general adult medical examination without abnormal findings [facility] Start: 02-21-2023 End: 02-21-2023 Assay of hemosiderin, quant Fatmata Kwon MD Work Phone: [facility] Work Phone: Start: 02-21-2023 End: 02-21-2023 Patient encounter procedure Fatmata Kwon MD Work Phone: [facility] Procedures Date Procedure Procedure Detail Performing Clinician Start: 02-14-2023 Lipid 1996 panel - S ly or Plasma Fatmata Kwon MD Work Phone: Start: 02-11-2020 Blood count complete auto&auto difrntl wbc Fatmata Kwon Start: 02-11-2020 Comprehensive metabo lic 2000 panel Fatmata Kwon Start: 02-11-2020 Cyanocobalamin vitamin b-12 Fatmata Kwon Start: 02-11-2020 Hemoglobin glycosylated a1c Fatmata Kwon Start: 02-11-2020 Lipid panel Fatmata Kwon Start: 02-11-2020 TSH WITH REFLEX TO F REE T4 IF ABNORMAL Fatmata Kwon Start: 01-20-2020 Assay of prostate sp ecific antigen total Greg Markham II Start: 01-20-2020 Xray Abdomen AP View Luly hn Markham II Start: 01-06-2020 Echocardiography Megan Kwon Start: 12-28-2019 Ultrasound Kidney Bilateral Greg Markham II Start: 12-10-2019 Echocardiography Avirup Conchita Start: 12-10-2019 VASC LAB PVR (Arteri al Physiologic) w/ Exercise Avirup Conchita Start: 11-30-2019 Cardiac Catheterizat ion Lab Procedures Avirup Conchita Start: 11-30-2019 In Lab PSG Sleep Yonathan dy, 6 years of age and greater Avirup Conchita Start: 11-19-2019 Assay of thyroid sti mulating hormone tsh Avirup Conchita Start: 11-19-2019 Blood count complete auto&auto difrntl wbc Avirup Conchita Start: 11-19-2019 Comprehensive metabo lic 2000 panel Avirup Conchita Start: 11-19-2019 Cyanocobalamin vitamin b-12 Avirup Conchita Start: 11-19-2019 Hemoglobin glycosylated a1c Avirup Conchita Start: 11-19-2019 Lipid panel Avirup Guh a Start: 11-07-2018 COMPLETE PFT Marilee Mahmood Work Phone: Start: 08-12-2018 12 lead ECG Roberto Carlos Milena my Work Phone: Start: 08-22-2012 Colonoscopy Fatmata Kwon MD Work Phone: Arthroscopy of knee Gauri Kwon Cataract surgery Fatmata salmon Cholecystectomy Fatmata pfeiffer Colonoscopy Fatmata [place] Plan of Treatment Date Care Activity Detail Author Start: 02-15-2024 Lipid panel Lipid Panel [facility] Start: 08-28-2023 End: 08-28-2023 Patient encounter procedure 08/28/2023 9:00 AM EST Office Visit [facility] [address] [place] [phone] Fatmata Kwon MD [address] [facility] [place] [address] [facility] Start: 05-17-2023 Hemoglobin A1c measurement Diabetes: Hemoglobin A1C [facility] Start: 03-01-2023 Influenza vaccination Influenza Vaccine (#1) [facility] Start: 02-27-2023 FUV, Provider: Greg Markham II, Status: Pen, Time: 8:45 AM FUV, Provider: Greg Markham II, Status: Pen, Time: 8:45 AM CD-Tombfoj-Wxuzucpq [facility] 232 DO Work Phone: Start: 08-22-2022 Screening for malignant neoplasm of colon [facility] Start: 08-16-2022 EPV, Provider: Fatmata Kwon, Status: Pen, Time: 9:40 AM EPV, Provider: Fatmata Kwon, Status: Pen, Time: 9:40 AM -[facility] Work Phone: Start: 08-16-2022 Patient encounter procedure [facility] [employer] Start: 03-22-2022 Glaucoma screening Diabetes: Retinopathy Screening [facility] Start: 03-01-2022 Influenza vaccination Sequential Influenza Vaccine (#1) [facility] Start: 02-21-2022 FUV, Provider: Greg Markham II, Status: Pen, Time: 7:45 AM FUV, Provider: Greg Markham II, Status: Pen, Time: 7:45 AM [facility] Work Phone: Start: 02-15-2022 Urine screening for protein Diabetes: Urine Protein Screening [facility] Start: 02-15-2022 EPV, Provider: Fatmata Kwon, Status: Pen, Time: 9:40 AM EPV, Provider: Fatmata Kwon, Status: Pen, Time: 9:40 AM [facility] Work Phone: Start: 02-14-2022 FUV, Provider: Greg Markham II, Status: Pen, Time: 7:30 AM FUV, Provider: Greg Markham II, Status: Pen, Time: 7:30 AM [facility] Work Phone: Start: 11-17-2021 EGDCOLON, Provider: Eleazar Alcaraz, Status: Pen, Time: 9:30 AM EGDCOLON, Provider: Eleazar Alcaraz, Status: Pen, Time: 9:30 AM [facility] Work Phone: Start: 08-16-2021 EPV, Provider: Fatmata Kwon, Status: Pen, Time: 9:40 AM EPV, Provider: Fatmata Kwon, Status: Pen, Time: 9:40 AM [facility] Work Phone: Start: 02-23-2021 Patient encounter procedure MCRANNUAL, Provider: Fatmata Kwon, Status: Pen, Time: 9:20 AM [facility] Work Phone: Start: 02-10-2021 Pneumococcal Vaccine: 65+ Years (2 - PCV) Pneumococcal Vaccine: 65+ Years (2 - PCV) [facility] Start: 01-23-2021 FUV, Provider: Greg Markham II, Status: Pen, Time: 7:30 AM FUV, Provider: Greg Markham II, Status: Pen, Time: 7:30 AM [facility] Work Phone: Start: 05-10-2020 End: 05-10-2020 Office Visit 05/10/2020 Office Visit Pulmonology Marilee Mahmood MD [address] [place] [address] [phone] [facility] Start: 03-01-2020 Influenza vaccination given Sequential Influenza Vaccine (#1) [facility] Start: 01-12-2020 Ultrasound Kidney Bilateral XA-Rnzwvss-Jhignvl Work Phone: Start: 01-05-2020 Echocardiography [facility] [employer] Work Phone: Start: 11-30-2019 In Lab PSG Sleep Study, 6 years of age and greater [facility] [employer] Work Phone: Start: 11-04-2019 End: 11-04-2019 Office Visit 11/04/2019 Office Visit Pulmonology Marilee Mahmood MD [address] [place] [phone] [facility] Start: 05-14-2019 End: 05-14-2019 Appointment 05/14/2019 Appointment Cardiology Nu Rowland MD [address] [place] [address] [phone] [facility] Start: 05-12-2019 End: 05-12-2019 Office Visit 05/12/2019 Office Visit Cardiology Nu Rowland MD [address] [facility] [place] [address] [phone] [facility] Start: 04-27-2019 End: 04-27-2019 Office Visit 04/27/2019 Office Visit Pulmonology Marilee Mahmood MD [address] [place] [id number] [phone] [facility] Start: 03-01-2019 Influenza vaccination given [facility] Start: 02-12-2019 End: 02-12-2019 Office Visit 02/12/2019 Office Visit Cardiology Nu Rowland MD [address] [facility] [place] [address] [phone] [facility] Start: 12-24-2018 End: 12-24-2018 Office Visit 12/24/2018 Office Visit Pulmonology Marilee Mahmood MD [address] [place] [address] [phone] [facility] Start: 11-12-2018 End: 11-12-2018 Office Visit 11/12/2018 Office Visit Pulmonology Marilee Mahmood MD [address] [place] [address] [phone] [facility] Start: 11-07-2018 End: 11-07-2018 Appointment 11/07/2018 Appointment Pulmonology Marilee Mahmood MD [address] [place] [address] [phone] [facility] Start: 08-26-2018 End: 08-26-2018 Clinical Support [facility] Start: 03-01-2018 Influenza vaccination given SEQUENTIAL INFLUENZA VACCINE (#1) [facility] Start: 09-29-2016 Fall risk assessment [facility] Start: 09-29-2016 Pneumococcal vaccination PNEUMOCOCCAL VACCINE AGE 65+ (1 of 2 - PCV13) [facility] Start: 11-24-2015 Tetanus vaccination [facility] Start: 05-01-2006 Pneumococcal Vaccine: Age 65+ (2 - PCV) Pneumococcal Vaccine: Age 65+ (2 - PCV) [facility] Start: 09-29-2001 Administration of herpes zoster vaccine ZOSTER VACCINES (1 of 2) [facility] Start: 09-29-2001 Screening for malignant neoplasm of colon [facility] Start: 09-29-1973 DTaP/Tdap/Td Vaccines (1 - Tdap) DTaP/Tdap/Td Vaccines (1 - Tdap) [facility] Start: 09-29-1969 Hepatitis C antibody, confirmatory test Hepatitis C Screening [facility] Start: 09-29-1969 Hepatitis C screening Hepatitis C Screening [facility] Start: 1967 COVID-19 Vaccine (1 of 2) COVID-19 Vaccine (1 of 2) [facility] Start: 1963 Adolescent depression screening assessment Depression Screening (PHQ9) [facility] Start: 1963 Depression screening using PHQ-9 (Patient Health Questionnaire 9) score Depression Screening (PHQ-2/9) [facility] Start: 09-29-1961 Diabetic foot examination Diabetes: Foot Exam [facility] Start: 09-29-1954 History and physical examination, annual for health maintenance Wellness Visit [facility] Start: 03-31-1952 COVID-19 Vaccine (#1) COVID-19 Vaccine (#1) [facility] Start: 1951 Fall risk assessment Falls Risk Assessment [facility] Start: 1950 Hepatitis C antibody, confirmatory test HEPATITIS C SCREENING [facility] Start: 1950 Medicare Annual Wellness Visit Medicare Annual Wellness Visit (AWV) [facility] Start: 1951 Prostate specific antigen measurement PSA Level [facility] Start: 1951 Protein mass conc COLONOSCOPY [facility] Start: 1951 Screening for malignant neoplasm of colon [facility] Start: 1950 Tetanus vaccination TETANUS EVERY 10 YR [facility] End: 10-28-2019 Complete PFT with FeNO Complete PFT with FeNO Routine Cough 1 Occurrences starting 10/27/2018 until 10/28/2019 [facility] Immunizations Immunization Date Immunization Notes Care Provider Fa cili 06-29-2020 zoster vaccine recombinant Fatmata PerezRet[employer] Work Phone: [facility] Work Phone: 04-25-2020 zoster vaccine recombinant Fatmata RodriguezPandaBed Work Phone: [facility] Work Phone: 04-18-2020 Fluzone High-Dose Quadrivalent 0.7 ML Intramuscular Suspension Prefilled Syringe; Translations: [Fluzone High-Dose Quadrivalent 0.7 ML Intramuscular Suspension Prefilled Syringe] Fatmata Kwon Work Phone: [facility] Work Phone: Payers Date Payer Category Payer Unknown [employer] xxxxxxxxxxxx 2018-Present xxxxxxxxxxxx [id number] 2018 Unknown SHIVANI MENEZES [facility] [id number] 2018-Present [id number] 2018 Unknown [id number] 2016 Medicare MEDICARE MEDICAR E PART A & B xxxxxxxxxxx 2016-Present [place] xxxxxxxxxxx [id number] 2016 Medicare [id number] 2016 Medicare MEDICARE MEDICAR E PART A & B [id number] 2016-Present [place] [id number] 2016 Medicare [id number] 2016 Unknown 2016 Unknown [id number] 1951 Unknown [id number] 1951 Unknown [id number] 1951 Unknown [id number] 1951 Unknown [id number] 1951 Unknown [id number] 1951 Unknown [id number] 1951 Unknown [id number] 1951 Unknown [id number] 9 1951 Unknown [id number] 9 1951 Unknown [id number] 1951 Unknown [id number] 1951 Unknown [id number] 4 Social History Date Type Detail Facility Start: 08-12-2018 End: 02-21-2023 Tobacco smoking status NMIS Never smoker [facility] Start: 1950 Sex Assigned At Not on file [facility] Start: 04-27-2019 End: 11-04-2019 Alcohol intake Ex-drinker (finding) [facility] Exposure to SARS-CoV-2 (event) Not sure [facility] Start: 11-04-2019 End: 02-21-2023 Tobacco use and exposure Never used [facility] Start: 02-21-2023 Never a smoker Never a smoker [facility] Work [facility]: Tobacco smoking consumption unknown [facility] Start: 02-21-2023 Alcohol intake Lifetime non-d pedro luis (finding) [facility] Work Phone: Start: 02-21-2023 Tobacco use panel [facility] Work Phone: NEGATED: Highlighted row - - [facility] Work Phone: Medical Equipment Procedure Code Equipment Code Equipment Origin al Text Equipment Identifier Dates Blood Glucose Te st In Vitro Strip USE 1 STRIP Daily Test once daily or as directed Quantity: 300 Refills: 3 Fatmata Kwon MD Start : 27-Aug-2019 Active Start: 08-27-2019 Lancets test sug ar as directed TEST BLOOD SUGAR 1-2 TIMES DAILY Quantity: 100 Refills: 1 Fatmata Kwon MD Start : 27-Aug-2019 Active Start: 08-27-[address] In Vitro Strip USE 1 STRIP Daily Test once daily or as directed Quantity: 300 Refills: 3 Fatmata Kwon MD Start : 27-Aug-2019 Active Start: 08-27-2019 Lancets test sug ar as directed TEST BLOOD SUGAR 1-2 TIMES DAILY Quantity: 100 Refills: 1 Fatmata Kwon MD Start : 27-Aug-2019 Active Start: 08-27-[address] In Vitro Strip USE 1 STRIP Daily Test once daily or as directed Quantity: 300 Refills: 3 Fatmata Kwon MD Start : 27-Aug-2019 Active Start: 08-27-2019 Lancets test sug ar as directed TEST BLOOD SUGAR 1-2 TIMES DAILY Quantity: 100 Refills: 1 Fatmata Kwon MD Start : 27-Aug-2019 Active Start: 08-27-[address] In Vitro Strip USE 1 STRIP Daily Test once daily or as directed Quantity: 300 Refills: 3 Fatmata Kwon MD Start : 27-Aug-2019 Active Start: 08-27-2019 Lancets test sug ar as directed TEST BLOOD SUGAR 1-2 TIMES DAILY Quantity: 100 Refills: 1 Fatmata Kwon MD Start : 27-Aug-2019 Active Start: 08-27-[address] In Vitro Strip USE 1 STRIP Daily Test once daily or as directed Quantity: 300 Refills: 3 Fatmata Kwon MD Start : 27-Aug-2019 Active Start: 08-27-2019 Lancets test sug ar as directed TEST BLOOD SUGAR 1-2 TIMES DAILY Quantity: 100 Refills: 1 Fatmata Kwon MD Start : 27-Aug-2019 Active Start: 08-27-[address] In Vitro Strip USE 1 STRIP Daily Test once daily or as directed Quantity: 300 Refills: 3 Fatmata Kwon MD Start : 27-Aug-2019 Active Start: 08-27-2019 Lancets test sug ar as directed TEST BLOOD SUGAR 1-2 TIMES DAILY Quantity: 100 Refills: 1 Fatmata Kwon MD Start : 27-Aug-2019 Active Start: 08-27-[address] In Vitro Strip USE 1 STRIP Daily Test once daily or as directed Quantity: 300 Refills: 3 Fatmata Kwon MD Start : 27-Aug-2019 Active Start: 08-27-2019 Lancets test sug ar as directed TEST BLOOD SUGAR 1-2 TIMES DAILY Quantity: 100 Refills: 1 Fatmata Kwon MD Start : 27-Aug-2019 Active Start: 08-27-[address] In Vitro Strip USE 1 STRIP Daily Test once daily or as directed Quantity: 300 Refills: 3 Fatmata Kwon MD Start : 27-Aug-2019 Active Start: 08-27-2019 Lancets test sug ar as directed TEST BLOOD SUGAR 1-2 TIMES DAILY Quantity: 100 Refills: 1 Fatmata Kwon MD Start : 27-Aug-2019 Active Start: 08-27-[address] In Vitro Strip USE 1 STRIP Daily Test once daily or as directed Quantity: 300 Refills: 3 Fatmata Kwon MD Start : 27-Aug-2019 Active Start: 08-27-2019 Lancets test sug ar as directed TEST BLOOD SUGAR 1-2 TIMES DAILY Quantity: 100 Refills: 1 Fatmata Kwon MD Start : 27-Aug-2019 Active Start: 08-27-[address] In Vitro Strip USE 1 STRIP Daily Test once daily or as directed Quantity: 300 Refills: 3 Fatmata Kwon MD Start : 27-Aug-2019 Active Start: 08-27-2019 Lancets test sug ar as directed TEST BLOOD SUGAR 1-2 TIMES DAILY Quantity: 100 Refills: 1 Fatmata Kwon MD Start : 27-Aug-2019 Active Start: 08-27-[address] In Vitro Strip USE 1 STRIP Daily Test once daily or as directed Quantity: 300 Refills: 3 Fatmata Kwon MD Start : 27-Aug-2019 Active Start: 08-27-2019 Lancets test sug ar as directed TEST BLOOD SUGAR 1-2 TIMES DAILY Quantity: 100 Refills: 1 Fatmata Kwon MD Start : 27-Aug-2019 Active Start: 08-27-[address] In Vitro Strip USE 1 STRIP Daily Test once daily or as directed Quantity: 300 Refills: 3 Fatmata Kwon MD Start : 27-Aug-2019 Active Start: 08-27-2019 Lancets test sug ar as directed TEST BLOOD SUGAR 1-2 TIMES DAILY Quantity: 100 Refills: 1 Jojo SUAREZ, Fatmata Start : 27-Aug-2019 Active Start: 08-27-2019 Use as directed [id number] Start: 02-04-2023 Functional Status Date Assessment Result Facility NEGATED: Highlighted row Functional performance Functional status health issues are not documented Disease [facility] Work Phone: Mental Status Date Assessment Result Facility NEGATED: Highlighted row Cognitive function [Interpretation] Cognitive status health issues are not documented Disease [facility] Work Phone: Clinical Notes 01-16-2021 to 02-21-2023 Shaunna Myrick MA - 02/21/2023 9:40 AM EDTKatcindy Kwon MD - 02/21/2023 9:40 AM EDTPatient Instructions Note Date & Type Note Facility 02-21-2023 History of Presen t illness Narrative Subjective Patient ID: Greg Pozo is a 72 y.o. male who presents for 6 month follow up and labs completed. Medication refill metformin, fluticasone, gabapentin, colestipol, one touch ultra test strips. HPI Review of Systems Objective There were no vitals taken for this visit. Physical Exam Assessment/Plan Subjective Reason for Visit: Greg Pozo is an 72 y.o. male here for a Medicare Wellness visit. Past Medical, Surgical, and Family History reviewed and updated in chart. Reviewed all medications by prescribing practitioner or clinical pharmacist (such as prescriptions, OTCs, herbal therapies and supplements) and documented in the medical record. Here for routine f/u DM, HTN, GERD, SHALA, chronic pain, allergies, COPD, h/o CVA. Overall he is doing ok. Advance directives:. Advanced Care Planning discussed and documented advance care plan or surrogate decision maker documented in the medical record. Patient has no living will. Patient has no healthcare POA. Pneumovax 23/Prevnar 15: Pneumovax 23/Prevnar 15 vaccine was previously given. Shingles Vaccine: Shingles vaccine was previously given. Prostate cancer screening: Screening is current. Colorectal Cancer Screening: colonoscopy 08/22/2012 - repeat in 10 years. He is due for EGD and ill see about getting that set up sometime. Patient Care Team: Fatmata Kwon MD as PCP - General Fatmata Kwon MD as PCP - [facility] Attributed Provider Objective Vitals: BP 102/60 (BP Location: Left arm, Patient Position: Sitting, BP Cuff Size: Adult) Pulse 68 Ht 1.753 m (5' 9 ) Wt 78.4 kg (172 lb 12.8 oz) SpO2 98% BMI 25.52 kg/m Physical Exam Vitals reviewed. Constitutional: General: He is not in acute distress. Cardiovascular: Rate and Rhythm: Normal rate and regular rhythm. Heart sounds: No murmur heard. Pulmonary: Effort: Pulmonary effort is normal. No respiratory distress. Breath sounds: Normal breath sounds. Skin: General: Skin is warm and dry. Neurological: General: No focal deficit present. Mental Status: He is alert. Mental status is at baseline. Latest Reference Range & Units 02/14/23 08:20 GLUCOSE 74 - 99 mg/dL 132 (H) SODIUM 136 - 145 mmol/L 138 POTASSIUM 3.5 - 5.3 mmol/L 4.6 CHLORIDE 98 - 107 mmol/L 104 Bicarbonate 21 - 32 mmol/L 26 Anion Gap 10 - 20 mmol/L 13 Blood Urea Nitrogen 6 - 23 mg/dL 28 (H) Creatinine 0.50 - 1.30 mg/dL 1.02 Calcium 8.6 - 10.3 mg/dL 9.3 Albumin 3.4 - 5.0 g/dL 4.3 Alkaline Phosphatase 33 - 136 U/L 84 ALT 10 - 52 U/L 22 AST 9 - 39 U/L 16 Bilirubin Total 0.0 - 1.2 mg/dL 0.5 HDL CHOLESTEROL mg/dL 32.0 ! Cholesterol/HDL Ratio 4.0 VLDL 0 - 40 mg/dL 57 (H) TRIGLYCERIDES 0 - 149 mg/dL 283 (H) Non HDL Cholesterol mg/dL 96 Total Protein 6.4 - 8.2 g/dL 7.2 CHOLESTEROL 0 - 199 mg/dL 128 LDL 0 - 99 mg/dL 39 GFR MALE >90 mL/min/1.73m2 78 Vitamin B12 211 - 911 pg/mL 836 Hemoglobin A1C % 6.3 ! Thyroid Stimulating Hormone 0.44 - 3.98 mIU/L 1.92 Estimated Average Glucose MG/DL 134 PSA 0.00 - 4.00 ng/mL 3.31 WBC 4.4 - 11.3 x10E9/L 5.6 RBC 4.50 - 5.90 x10E12/L 4.78 HEMOGLOBIN 13.5 - 17.5 g/dL 15.1 HEMATOCRIT 41.0 - 52.0 % 45.6 MCV 80 - 100 fL 95 MCHC 32.0 - 36.0 g/dL 33.1 Platelets 150 - 450 x10E9/L 188 Neutrophils % 40.0 - 80.0 % 55.7 Immature Granulocytes %, Automated 0.0 - 0.9 % 0.2 Lymphocytes % 13.0 - 44.0 % 35.0 Monocytes % 2.0 - 10.0 % 7.0 Eosinophils % 0.0 - 6.0 % 1.4 Basophils % 0.0 - 2.0 % 0.7 Neutrophils Absolute 1.60 - 5.50 x10E9/L 3.10 Lymphocytes Absolute 0.80 - 3.00 x10E9/L 1.95 Monocytes Absolute 0.05 - 0.80 x10E9/L 0.39 Eosinophils Absolute 0.00 - 0.40 x10E9/L 0.08 Basophils Absolute 0.00 - 0.10 x10E9/L 0.04 RED CELL DISTRIBUTION WIDTH 11.5 - 14.5 % 12.1 (H): Data is abnormally high !: Data is abnormal Assessment/Plan Problem List Items Addressed This Visit Arteriosclerosis of coronary artery Relevant Medications amLODIPine (Norvasc) 5 mg tablet 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/HCC) - Primary GERD (gastroesophageal reflux disease) HTN (hypertension), benign Other Visit Diagnoses Routine general medical examination at health care facility documented in this encounter [facility] Work Phone: 02-21-2023 Instructions Fatmata Kwon MD - 02/21/2023 9:40 AM EDT Continue current medications. Follow up with specialists as scheduled. Follow up in 6 months, sooner if needed. documented in this encounter [facility] Work Phone: 02-20-2023 History of Presen t illness Narrative Patient is here for yearly fu. Most recent PSA was 3.31 on 02/20. Prior PSA was 2.60 on 02/19. Prior PSA was 1.63 on 01/18..Prior PSA was 1.59 12/18.. Prior PSA was 2.28 06/18.. BPH sx are chronic and mild. Has some frequency ad urgency..Some weak stream at times..some hesitancy..Denies dysuria and hematuria. Nocturia x 2-3. No medication for LUT'S. ED is chronic. Man[facility]et [facility] Work Phone: 02-19-2022 History of Presen t illness Narrative Patient is here for yearly fu. Most recent PSA was 2.60 on 02/19. Prior PSA was 1.63 on 01/18..Prior PSA was 1.59 12/18.. Prior PSA was 2.28 06/18.. BPH sx are chronic and mild. Has some frequency ad urgency..Some weak stream at times..some hesitancy..Denies dysuria and hematuria. Nocturia x2-3. No medication for LUT'S. ED is chronic. [facility]jeet [facility]UT[facility] Work Phone: 01-08-2022 History of Presen t illness Narrative Here for f/u left leg pain, bruising, swelling that started about 9-10 days ago. He was seen last week by [facility], had a doppler that was negative for DVT. It is much better than it was but still sore and he does get some swelling by the end of the day. 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 -[facility] Work Phone: 01-18-2021 History of Presen t illness Narrative Patient here for 1 yr w/PSA..Most recent PSA was 1.63 on 01/18..Prior PSA was 1.59 12/18.. Prior PSA was 2.28 06/18.. Prior PSA was 1.17 01/15. Prior PSA was 1.18 10/15...BPH sx are chronic and mild. Has some frequency ad urgency..Some weak stream at times..some hesitancy..Feels like he might not be emptying all the way..Denies dysuria and hematuria. Nocturia x2-3. Pt does not limit PM fluids. This is the main time he drinks fluids. Caffeine worsens LUT's. ED is chronic. No medications for this. Energy level is good..Normal cysto 01/20/20.. [facility] Work Phone: 01-18-2021 History of Presen t illness Narrative Patient here for 1 yr w/PSA..Most recent PSA was 1.63 on 01/18..Prior PSA was 1.59 12/18.. Prior PSA was 2.28 06/18.. Prior PSA was 1.17 01/15. Prior PSA was 1.18 10/15...BPH sx are chronic and mild. Has some frequency ad urgency..Some weak stream at times..some hesitancy..Feels like he might not be emptying all the way..Denies dysuria and hematuria. Nocturia x2-3. Pt does not limit PM fluids. This is the main time he drinks fluids. Caffeine worsens LUT's. ED is chronic. No medications for this. Energy level is good..Normal cysto 01/20/20.. [facility] Work Phone: 01-16-2021 History of Presen t illness Narrative Pt presents today for left leg redness, and pain. He noticed it x 2 nights ago. It has an irregular border at the back of the calf. He has some prominent purple vascularity on lateral and posterior calf. It is mildly tender lower on his calf. 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 -[facility] Work Phone: documented in this encounter [facility] Work Phone: History of Present illness Narrative* The patient is being seen for the subsequent annual wellness visit. * Past Medical, Surgical and Family History: reviewed and updated in chart. * Medications and Supplements: Medications and supplements, including calcium and vitamins reviewed and updated in chart. * No, the patient is not using opioids. * Patient Self Assessment of Health Status: good. * Tobacco use: Non-User * Alcohol use: Non-User * Illicit drug use: Non-User * Current diet: well balanced diet and Diabetic Diet. * Exercise Frequency: regularly. * Depression/Suicide Screening: . * During the past 2 weeks, the patient has not felt down, depressed or hopeless. * During the past 2 weeks, the patient has not felt little interest or pleasure in doing things. * Hearing Impairment: Patient has slight hearing impairment. * Cognitive Impairment: No cognitive impairment observed. * Bathing: performs independently. * Dressing: performs independently. * Walking: performs independently. * Managing Finances: performs independently. * Shopping: performs independently. * Managing Medications: performs independently. * Housework / Basic Home Maintenance: performs independently. * Falls Risk Screening:. GREG has not fallen in the last 6 months. * Home safety risk factors: none. * Advance directives:. Patient has living will. Patient has healthcare POA. * Here for routine f/u DM, HTN, GERD, SHALA, chronic pain, allergies, COPD. Overall he is doing well, recently was in the hospital in [place] with possible CVA. He was supposed to be wearing a heart monitor but he developed a rash and they told him to keep it off until the rash heals. We discussed that he could use some cortisone cream on the rash. He is supposed to be following up with Dr Borjas (cardiology) He did have a televisit follow up with a neurologist. He is not on a statin - his LDL has consistently been low and he does not want to take a statin. His lisinopril HCTZ was switched to lisinopril at a higher dose. [facility] Work Phone: History of Present illness NarrativeHere for routine f/u DM, HTN, GERD, SHALA, chronic pain, allergies, COPD, h/o CVA. He did see a neurologist who suggested he decrease the asa to 81 mg due to his stomach issues but he is not sure he feels comfortable doing that and he has continued on 325 mg daily.[facility] Work Phone: History of Present illness NarrativeHere for routine f/u DM, HTN, GERD, SHALA, chronic pain, allergies, COPD, h/o CVA. He did see a neurologist who suggested he decrease the asa to 81 mg due to his stomach issues but he is not sure he feels comfortable doing that and he has continued on 325 mg daily. He is feeling good overall, no new concerns. He is seeing eye specialists for increased pressure in his eyes.[facility] Work Phone: History of Present illness Narrative* The patient is being seen for the subsequent annual wellness visit. * Past Medical, Surgical and Family History: reviewed and updated in chart. * Medications and Supplements: Review of all medications by a prescribing practitioner or clinical pharmacist (such as prescriptions, OTCs, herbal therapies and supplements) documented in the medical record. * No, the patient is not using opioids. * Patient Self Assessment of Health Status: good. * Tobacco use: Non-User * Alcohol use: Non-User * Illicit drug use: Non-User * Current diet: well balanced diet and Diabetic Diet. * Exercise Frequency: regularly. * Depression/Suicide Screening: . * During the past 2 weeks, the patient has not felt down, depressed or hopeless. * During the past 2 weeks, the patient has not felt little interest or pleasure in doing things. * Hearing Impairment: Patient has slight hearing impairment. * Cognitive Impairment: No cognitive impairment observed. * Bathing: performs independently. * Dressing: performs independently. * Walking: performs independently. * Managing Finances: performs independently. * Shopping: performs independently. * Managing Medications: performs independently. * Housework / Basic Home Maintenance: performs independently. * Falls Risk Screening:. GREG has not fallen in the last 6 months. * Home safety risk factors: none. * Advance directives:. Advance Care Planning discussed and documented in the medical record, patient did not wish or was not able to name a surrogate decision maker or provide an advance care plan. Patient has no living will. Patient has no healthcare POA. * Here for routine f/u DM, HTN, GERD, SHALA, chronic pain, allergies, COPD, h/o CVA. [facility] Work Phone: Reason for referral (narrative)* Consultation (Routine) - Authorized Specialty Diagnoses / Procedures Referred By Contac t Referred To Contact Primary Care Procedures Follow Up In Primary Care - Established Fatmata Kwon MD [address] [facility] [place] [address] Referral ID Status Reason Start Date Expiration Date V isits Requested Visits Authorized [id number] Authorized 02/21/2023 08/20/2023 1 1 [facility] Work Phone: Instructions Name Dates Details Instructions not documented Name Dates Details Instructions not documented Name Dates Details Instructions not documented Name Dates Details Instructions not documented Name Dates Details Instructions not documented Name Dates Details Instructions not documented Name Dates Details Instructions not documented Name Dates Details Instructions not documented Name Dates Details Instructions not documented History of Present Illness * Roberto Carlos Cardona MD - 08/12/2018 9:35 AM EST OFFICE CONSULTATION NOTE [facility] [address] [facility] [address] [facility] [id number] Physicians: Fatmata Kwon MD Subjective: Greg Pozo is a 67 y.o. male seen in the office today for Establish Care (s/p d/c [facility] for chest pain. CT and stress echo completed ) . HPI: The patient is a 67-year-old gentleman with a past medical history significant for hypertension andGERD. He also has a history of obstructive sleep apnea but has not followed up with CPAP therapy. He was recently seen at [facility] ED for chest pain. He ultimately had a stress echocardiogram which did not demonstrate ischemia. He had normal LV systolic function. He did have left ventricular hypertrophy. He had CT angios of the chest which did not demonstrate pulmonary emboli. He did have coronary calcifications. The patient continues to note some atypical chest discomfort. He denies any orthopnea, paroxysmal nocturnal dyspnea, syncope, or near syncope. He states he exercises on a treadmill daily without symptoms. He is markedly hypertensive in the office. This has been an issue for him. He does not check his blood pressures at home. Assessment & Plan: Hypertension His blood pressure is markedly elevated. It has been elevated at the time of his other medical encounters. I have taken liberty of discontinuing his lisinopril. I have added lisinopril/hydrochlorothiazide 20/12.5 mg daily. He will remain on metoprolol succinate 100 mg daily. I will have him return in 2 weeks for blood pressure check. His blood pressure medication will need to be aggressively titra ian. SHALA (obstructive sleep apnea) I explained to him the importance of compliance with CPAP therapy. He was warned. Follow Up Ordered: Return in about 6 months (around 02/09/2019). Histories: Past Medical History: Diagnosis Date Martin esophagus BPH (benign prostatic hyperplasia) Epididymitis GERD (gastroesophageal reflux disease) Hypertension SHALA (obstructive sleep apnea) Spinal stenosis Past Surgical History: Procedure Laterality Date CATARACT EXTRACTION, BILATERAL CHOLECYSTECTOMY HERNIA REPAIR KNEE SURGERY arthroscopic TOTAL SHOULDER ARTHROPLASTY History reviewed. No pertinent family history. Social History Tobacco Use Smoking status: Not on file Substance Use Topics Alcohol use: Not on file Drug use: Not on file Current Outpatient Medications Medication Sig Dispense Refill ascorbic acid, vitamin C, (vitamin C) 1000 MG tablet Take 1,000 mg by mouth daily . calcium carbonate-vitamin D2 500 mg(1,250mg) -200 unit tablet Take 1 tablet by mouth 2 (two) times a day . colestipol (COLESTID) 1 gram tablet Take 1 g by mouth 2 (two) times a day . 3 DEXILANT 60 mg capsule Take 1 capsule by mouth daily . 11 ergocalciferol (VITAMIN D2) 50,000 unit capsule Take 50 mcg by mouth daily . fish oil-omega-3 fatty acids 300-1,000 mg capsule Take 2 g by mouth daily . fluticasone (FLONASE) 50 mcg/actuation nasal spray 1 spray by Each Nare route 2 (two) times a day as needed . 3 garlic cap Take 2 capsules by mouth daily . glucosamine-chondroitin 500-400 mg tablet Take 1 tablet by mouth daily . meloxicam (MOBIC) 7.5 MG tablet Take 7.5 mg by mouth daily . 3 metoprolol succinate (TOPROL-XL) 100 MG 24 hr tablet Take 100 mg by mouth daily . 3 montelukast (SINGULAIR) 10 mg tablet Take 10 mg by mouth every evening . 1 multivitamin (THERAGRAN) per tablet Take 1 tablet by mouth daily . SYMBICORT 80-4.5 mcg/actuation inhaler Inhale 2 puffs 2 (two) times a day . 3 tadalafil (CIALIS) 5 MG tablet Take 5 mg by mouth as needed for erectile dysfunction . vitamin E 100 UNIT capsule Take 100 Units by mouth daily . zinc 50 mg Tab Take 1 tablet by mouth daily . ZYLET 0.3-0.5 % DrpS Administer 1 drop to both eyes 4 (four) times a day . 0 lisinopril-hydrochlorothiazide (ZESTORETIC) 20-12.5 mg per tablet Take 1 (one) tablet by mouth daily . 30 tablet 11 No current facility-administered medications for this visit. Allergies Allergen Reactions Prednisone Hives Review of Systems Constitution: Negative for diaphoresis, malaise/fatigue, weight gain and weight loss. HENT: Negative for hearing loss, nosebleeds and tinnitus. Eyes: Negative for blurred vision and visual disturbance. Cardiovascular: Positive for chest pain (Pleuritic). Negative for claudication, cyanosis, dyspnea on exertion, irregular heartbeat, leg swelling, near-syncope, orthopnea, palpitations, paroxysmal nocturnal dyspnea and syncope. Respiratory: Negative for hemoptysis, shortness of breath and snoring. Endocrine: Negative for cold intolerance and heat intolerance. Hematologic/Lymphatic: Does not bruise/bleed easily. Skin: Negative for flushing, poor wound healing and rash. Musculoskeletal: Negative for back pain, muscle weakness and myalgias. Gastrointestinal: Negative for abdominal pain, change in bowel habit, melena, nausea and vomiting. Genitourinary: Negative for decreased libido and hematuria. Neurological: Negative for loss of balance and numbness. Psychiatric/Behavioral: Negative for memory loss. The patient is not nervous/anxious. Overview of Problems Addressed: Problem Hypertension Shala (Obstructive Sleep Apnea) Objective: Physical Exam Constitutional: He is oriented to person, place, and time. He appears well- developed and well-nourished. HENT: Head: Normocephalic. Eyes: Pupils are equal, round, and reactive to light. Conjunctivae and EOM are normal. No scleral icterus. Neck: Normal range of motion. Neck supple. No JVD present. No tracheal deviation present. No thyromegaly present. Cardiovascular: Normal rate, regular rhythm, S1 normal, S2 normal, normal heart sounds and intact distal pulses. Exam reveals no friction rub. No murmur heard. Pulmonary/Chest: Breath sounds normal. No respiratory distress. He has no wheezes. He has no rales. Abdominal: Soft. Bowel sounds are normal. He exhibits no distension and no mass. There is no hepatosplenomegaly. There is no tenderness. Musculoskeletal: Normal range of motion. He exhibits no edema. Lymphadenopathy: He has no cervical adenopathy. Neurological: He is alert and oriented to person, place, and time. Skin: Skin is warm and dry. Psychiatric: He has a normal mood and affect. His behavior is normal. Vitals: Vitals: 08/12/18 0902 BP: (!) 186/105 BP Location: Left arm Patient Position: Sitting Pulse: 71 SpO2: 96% Weight: 96.3 kg (212 lb 3.2 oz) Height: 5' 8 Orders Placed This Encounter ECG 12 Lead DEXILANT 60 mg capsule colestipol (COLESTID) 1 gram tablet meloxicam (MOBIC) 7.5 MG tablet SYMBICORT 80-4.5 mcg/actuation inhaler montelukast (SINGULAIR) 10 mg tablet DISCONTD: lisinopril (PRINIVIL,ZESTRIL) 10 MG tablet fluticasone (FLONASE) 50 mcg/actuation nasal spray metoprolol succinate (TOPROL-XL) 100 MG 24 hr tablet ZYLET 0.3-0.5 % DrpS tadalafil (CIALIS) 5 MG tablet zinc 50 mg Tab garlic cap calcium carbonate-vitamin D2 500 mg(1,250mg) -200 unit tablet multivitamin (THERAGRAN) per tablet vitamin E 100 UNIT capsule fish oil-omega-3 fatty acids 300-1,000 mg capsule ascorbic acid, vitamin C, (vitamin C) 1000 MG tablet glucosamine-chondroitin 500-400 mg tablet ergocalciferol (VITAMIN D2) 50,000 unit capsule lisinopril-hydrochlorothiazide (ZESTORETIC) 20-12.5 mg per tablet Thank you for allowing me to assist you in the cardiovascular care of this patient. Please don't hesitate to contact me if you have any questions regarding these thoughts. Roberto Carlos Cardona MD in this encounter* Marilee Goodrich RN - 08/26/2018 9:38 AM EST Greg has been on his new BP med for a couple weeks. He is monitoring his BP daily at home that shows BP reading in the past week 130's /70-80's. Greg states he is feeling much better and has no complaints of dizziness or lightheadedness. Greg did say is looking into the equipment to treat his Sleep apnea. in this encounter* Marilee Mahmood MD - 10/27/2018 1:03 PM EDT HPI: Greg Pozo is a 68 y.o. male non-smoker who presents today for evaluation of chronic cough.He does not have a history of asthma. He did have several bouts of pneumonia as a child. He has hada chronic cough for years which is worse when he is ill with bronchitis. This past winter he had severe coughing following an upper respiratory infection. His cough was so severe that he vomited. He had coughing jags. His cough is mainly dry but he can cough up some mucus. His cough is worse when he speaks for prolonged period, is exposed to cool air, is exposed to perfume odors, specifically thedetergent while in the store. He tends to cough more in the evening. He denied postprandial cough. He does cough at night and has been awakened by his cough. Of note, he has significant acid reflux disease with a history of Martin's esophagus. He is on Dexilant which has helped his symptoms. He does not have significant shortness of breath or wheezing. He denied significant sinus congestion and postnasal drip. He has intermittent hoarse voice, sore throat and throat clearing. He has been on low-dose Symbicort for years. Initially he felt that it was helpful but it does not seem to be effective currently. He has been on prednisone in the past but his last course resulted in a truncal rash. He has significant exposure history to asbestos in the past. 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 . Never smoker,no alcohol or illicit drug use. Pets: None. Probable exposure history to asbestos FH: Both parents . Four brothers one due to bone cancer. One brother has prostate cancer and one brother has heart disease status post CABG CTA chest 06/13/2018: Dense coronary calcifications Current Outpatient Medications Medication Sig Dispense Refill ascorbic acid, vitamin C, (vitamin C) 1000 MG tablet Take 1,000 mg by mouth daily . calcium carbonate-vitamin D2 500 mg(1,250mg) -200 unit tablet Take 1 tablet by mouth 2 (two) times a day . colestipol (COLESTID) 1 gram tablet Take 1 g by mouth 2 (two) times a day . 3 DEXILANT 60 mg capsule Take 1 capsule by mouth daily . 11 ergocalciferol (VITAMIN D2) 50,000 unit capsule Take 50 mcg by mouth daily . fish oil-omega-3 fatty acids 300-1,000 mg capsule Take 2 g by mouth daily . fluticasone (FLONASE) 50 mcg/actuation nasal spray 1 spray by Each Nare route 2 (two) times a day as needed . 3 garlic cap Take 2 capsules by mouth daily . glucosamine-chondroitin 500-400 mg tablet Take 1 tablet by mouth daily . lisinopril-hydrochlorothiazide (ZESTORETIC) 20-12.5 mg per tablet Take 1 (one) tablet by mouth daily . 30 tablet 11 meloxicam (MOBIC) 7.5 MG tablet Take 7.5 mg by mouth daily . 3 metoprolol succinate (TOPROL-XL) 100 MG 24 hr tablet Take 100 mg by mouth daily . 3 montelukast (SINGULAIR) 10 mg tablet Take 10 mg by mouth every evening . 1 multivitamin (THERAGRAN) per tablet Take 1 tablet by mouth daily . SYMBICORT 80-4.5 mcg/actuation inhaler Inhale 2 puffs 2 (two) times a day . 3 tadalafil (CIALIS) 5 MG tablet Take 5 mg by mouth as needed for erectile dysfunction . vitamin E 100 UNIT capsule Take 100 Units by mouth daily . zinc 50 mg Tab Take 1 tablet by mouth daily . ZYLET 0.3-0.5 % DrpS Administer 1 drop to both eyes 4 (four) times a day . 0 No current facility-administered medications for this visit. Review of Systems - History obtained from the patient and intake form General ROS: positive for - fatigue negative for - chills, fever or weight loss Psychological ROS: negative for - anxiety or depression Ophthalmic ROS: positive for - blurry vision negative for - eye pain or itchy eyes ENT ROS: positive for - hearing change, sore throat and hoarseness, and throat clearing Allergy and Immunology ROS: positive for - postnasal drip and seasonal allergies Hematological and Lymphatic ROS: negative Endocrine ROS: no thyroid disease Respiratory ROS: positive for - cough and shortness of breath negative for - hemoptysis, sputum changes or wheezing Cardiovascular ROS: positive for - chest pain and dyspnea on exertion Gastrointestinal ROS: positive for - gas/bloating, heartburn and swallowing difficulty/pain Genito-Urinary ROS: no dysuria, trouble voiding, or hematuria Musculoskeletal ROS: positive for - muscle pain Neurological ROS: no TIA or stroke symptoms Dermatological ROS: negative BP (!) 152/80 Pulse 96 Resp 18 Wt 93 kg (205 lb) SpO2 98% BMI 31.17 kg/m General appearance: alert, appears stated age, cooperative and no distress Head: Normocephalic, without obvious abnormality Eyes: negative findings: lids and lashes normal, conjunctivae and sclerae normal and corneas clear Ears: cerumenosis Throat: no lesions or thrush or erythema Neck: no adenopathy, no JVD, supple, symmetrical, trachea midline and thyroid not enlarged, symmetric, no tenderness/mass/nodules Lungs: clear to auscultation bilaterally and normal percussion bilaterally Chest wall: normal configuration Heart: regular rate and rhythm, S1, S2 normal, no murmur, click, rub or gallop Extremities: extremities normal, atraumatic, no cyanosis or edema Skin: Skin color, texture, turgor normal. No rashes or lesions Neurologic: Grossly normal ASSESMENT/PLAN: Cough GERD/Martin's He may have some degree of airways disease but I suspect his cough is mostly related to his acid reflux. He will hold his Symbicort for now. I have ordered a pulmonary function test and FeNO level. He may need a methacholine challenge depending on the results of his baseline pulmonary function tests and FeNO level. He needs a EGD reevaluation. He may need a referral to [facility] for surgical intervention. documented in this encounter* Marilee Mahmood MD - 11/12/2018 11:01 AM EDT HPI: Greg Pozo is a 68 y.o. male non-smoker who presented for evaluation of chronic cough. He tends to have persistent cough following upper respiratory infection. At his initial visit, I felt that his cough was likely related to airways disease as well as acid reflux disease. He does have a history of Martin's esophagus and has been on Dexilant. He had a recent EGD performed. I do not have the official results but the images do not look as if he has significant esophagitis and his biopsy results are not available as of yet. His pulmonary function tests show airflow obstruction mainly inhis small airways with marked improvement after bronchodilator challenge. His FeNO level is not suggestive of significant eosinophilic airways inflammation. PFT 11/07/2018: FVC 3.89 L 91% FEV1 2.66 L 84% increases to 3.1 L with bronchodilator FEV1/FVC 68% FEF 25-75% 1.54 L 62% increases to 2.64 L with bronchodilator TLC 5.63 L 83% FRC 2.51 L 70% RV 1.81 L 72% DLCO 26.79 93% FeNO 17 ppb Current Outpatient Medications Medication Sig Dispense Refill ascorbic acid, vitamin C, (vitamin C) 1000 MG tablet Take 1,000 mg by mouth daily . calcium carbonate-vitamin D2 500 mg(1,250mg) -200 unit tablet Take 1 tablet by mouth 2 (two) times a day . colestipol (COLESTID) 1 gram tablet Take 1 g by mouth 2 (two) times a day . 3 DEXILANT 60 mg capsule Take 1 capsule by mouth daily . 11 ergocalciferol (VITAMIN D2) 50,000 unit capsule Take 50 mcg by mouth daily . fish oil-omega-3 fatty acids 300-1,000 mg capsule Take 2 g by mouth daily . fluticasone (FLONASE) 50 mcg/actuation nasal spray 1 spray by Each Nare route 2 (two) times a day as needed . 3 garlic cap Take 2 capsules by mouth daily . glucosamine-chondroitin 500-400 mg tablet Take 1 tablet by mouth daily . lisinopril-hydrochlorothiazide (ZESTORETIC) 20-12.5 mg per tablet Take 1 (one) tablet by mouth daily . 30 tablet 11 meloxicam (MOBIC) 7.5 MG tablet Take 7.5 mg by mouth daily . 3 metoprolol succinate (TOPROL-XL) 100 MG 24 hr tablet Take 100 mg by mouth daily . 3 montelukast (SINGULAIR) 10 mg tablet Take 10 mg by mouth every evening . 1 multivitamin (THERAGRAN) per tablet Take 1 tablet by mouth daily . tadalafil (CIALIS) 5 MG tablet Take 5 mg by mouth as needed for erectile dysfunction . vitamin E 100 UNIT capsule Take 100 Units by mouth daily . zinc 50 mg Tab Take 1 tablet by mouth daily . ZYLET 0.3-0.5 % DrpS Administer 1 drop to both eyes 4 (four) times a day . 0 No current facility-administered medications for this visit. PMH, surgical history, family history, social history: Reviewed, unchanged except where noted. Review of Systems - No significant change from last visit except for increased coughing when off Symbicort and EGD did not show significant esophagitis (biopsies pending) BP 148/80 Pulse 92 Resp 16 Wt 93 kg (205 lb) SpO2 93% BMI 31.17 kg/m General appearance: alert, appears stated age, cooperative, no distress and moderately obese Head: Normocephalic, without obvious abnormality Throat: lips, mucosa, and tongue normal; teeth and gums normal Lungs: clear to auscultation bilaterally and normal percussion bilaterally Heart: regular rate and rhythm, S1, S2 normal, no murmur, click, rub or gallop ASSESMENT/PLAN: Cough Small airways disease GERD He will continue on therapy for his acid reflux disease. I started him on Breo Ellipta 200/25. I will see him back for a reassessment in 6 weeks. documented in this encounter* Marilee Mahmood MD - 12/24/2018 12:30 PM EDT HPI: Greg Pozo is a 68 y.o. male non-smoker with chronic cough. He had pulmonary function test that showed mild reversible obstruction. In addition he has significant acid reflux disease and had recently undergone an EGD. Apparently he still has a Martin's esophagus but it is not severe at this time and his biopsies were negative for dysplasia. I gave him Breo Ellipta 200/25. He states his been doing well with the inhaler. He has not had any obvious side effects. His has noted that heis not coughing as much. He has had some coughing spells but they have been related to dust exposure. He has no other new medical problems. He denies any wheezing, chest pain, significant dyspnea. Current Outpatient Medications Medication Sig Dispense Refill ascorbic acid, vitamin C, (vitamin C) 1000 MG tablet Take 1,000 mg by mouth daily . calcium carbonate-vitamin D2 500 mg(1,250mg) -200 unit tablet Take 1 tablet by mouth 2 (two) times a day . colestipol (COLESTID) 1 gram tablet Take 1 g by mouth 2 (two) times a day . 3 DEXILANT 60 mg capsule Take 1 capsule by mouth daily . 11 ergocalciferol (VITAMIN D2) 50,000 unit capsule Take 50 mcg by mouth daily . fish oil-omega-3 fatty acids 300-1,000 mg capsule Take 2 g by mouth daily . fluticasone (FLONASE) 50 mcg/actuation nasal spray 1 spray by Each Nare route 2 (two) times a day as needed . 3 garlic cap Take 2 capsules by mouth daily . glucosamine-chondroitin 500-400 mg tablet Take 1 tablet by mouth daily . lisinopril-hydrochlorothiazide (ZESTORETIC) 20-12.5 mg per tablet Take 1 (one) tablet by mouth daily . 30 tablet 11 meloxicam (MOBIC) 7.5 MG tablet Take 7.5 mg by mouth daily . 3 metoprolol succinate (TOPROL-XL) 100 MG 24 hr tablet Take 100 mg by mouth daily . 3 montelukast (SINGULAIR) 10 mg tablet Take 10 mg by mouth every evening . 1 multivitamin (THERAGRAN) per tablet Take 1 tablet by mouth daily . tadalafil (CIALIS) 5 MG tablet Take 5 mg by mouth as needed for erectile dysfunction . vitamin E 100 UNIT capsule Take 100 Units by mouth daily . zinc 50 mg Tab Take 1 tablet by mouth daily . ZYLET 0.3-0.5 % DrpS Administer 1 drop to both eyes 4 (four) times a day . 0 fluticasone furoate-vilanterol (BREO ELLIPTA) 200-25 mcg/dose DsDv Inhale 1 (one) puff daily . 1 each 6 No current facility-administered medications for this visit. PMH, surgical history, family history, social history: Reviewed, unchanged except where noted. Review of Systems - no change from last visit except for less cough BP (!) 165/90 Pulse 81 Resp 18 Wt 93 kg (205 lb) SpO2 96% BMI 31.17 kg/m General appearance: alert, appears stated age, cooperative, no distress and moderately obese Head: Normocephalic, without obvious abnormality Eyes: negative findings: lids and lashes normal, conjunctivae and sclerae normal and corneas clear Throat: no thrush Neck: no adenopathy, no JVD, supple, symmetrical, trachea midline and thyroid not enlarged, symmetric, no tenderness/mass/nodules Lungs: clear to auscultation bilaterally and normal percussion bilaterally Heart: regular rate and rhythm, S1, S2 normal, no murmur, click, rub or gallop Extremities: extremities normal, atraumatic, no cyanosis or edema ASSESMENT/PLAN: Probable cough asthma At this point he will continue Breo Ellipta 200/25. I did not have any samples available so I sent in a prescription. I will see him back in a few months for repeat evaluation. We discussed his significant work exposure history and the need to be more cautious and use a mask. documented in this encounter* Marilee Mahmood MD - 04/27/2019 11:36 AM EDT CC: follow-up cough HPI: Greg Pozo is a 68 y.o. male non-smoker with chronic cough. He was diagnosed with cough variant asthma by pulmonary function tests that showed mild reversible obstruction. In addition he has acid reflux disease with a history of Martin's esophagus. Recent examination of his esophagus showspersistent esophagitis but no evidence of cancer. He has been on Breo Ellipta 200/25 for his airways disease with marked improvement in his symptoms. Today he presents for routine follow-up. He states that his acid reflux has not been problematic and remains on Dexilant. From a respiratory standpoint he has had occasional coughing but no sputum production. He denies significant dyspnea, chest pain, wheezing. He has noted new problems with occasional hoarseness and difficulty phonating. He has not had significant sore throat or dysphagia. Is not been ill with any upper respiratory infection. 3 Current Outpatient Medications Medication Sig Dispense Refill ascorbic acid, vitamin C, (vitamin C) 1000 MG tablet Take 1,000 mg by mouth daily . atorvastatin (LIPITOR) 40 MG tablet Take 1 (one) tablet (40 mg total) by mouth daily . 30 tablet 11 calcium carbonate-vitamin D2 500 mg(1,250mg) -200 unit tablet Take 1 tablet by mouth 2 (two) times a day . colestipol (COLESTID) 1 gram tablet Take 1 g by mouth 2 (two) times a day . 3 DEXILANT 60 mg capsule Take 1 capsule by mouth daily . 11 ergocalciferol (VITAMIN D2) 50,000 unit capsule Take 50 mcg by mouth daily . fish oil-omega-3 fatty acids 300-1,000 mg capsule Take 2 g by mouth daily . fluticasone (FLONASE) 50 mcg/actuation nasal spray 1 spray by Each Nare route 2 (two) times a day as needed . 3 fluticasone furoate-vilanterol (BREO ELLIPTA) 200-25 mcg/dose DsDv Inhale 1 (one) puff daily . 1 each 6 garlic cap Take 2 capsules by mouth daily . glucosamine-chondroitin 500-400 mg tablet Take 1 tablet by mouth daily . lisinopril-hydrochlorothiazide (ZESTORETIC) 20-12.5 mg per tablet Take 1 (one) tablet by mouth daily . 30 tablet 11 meloxicam (MOBIC) 7.5 MG tablet Take 7.5 mg by mouth daily . 3 metoprolol succinate (TOPROL-XL) 100 MG 24 hr tablet Take 100 mg by mouth daily . 3 montelukast (SINGULAIR) 10 mg tablet Take 10 mg by mouth every evening . 1 multivitamin (THERAGRAN) per tablet Take 1 tablet by mouth daily . tadalafil (CIALIS) 5 MG tablet Take 5 mg by mouth as needed for erectile dysfunction . vitamin E 100 UNIT capsule Take 100 Units by mouth daily . zinc 50 mg Tab Take 1 tablet by mouth daily . ZYLET 0.3-0.5 % DrpS Administer 1 drop to both eyes 4 (four) times a day . 0 flu vac qv 2019,18yr up,rc,PF, (FLUBLOK QUAD) syringe Sign this order in conjunction with the immunization order to satisfy [place] Board of Pharmacy Positive ID requirements for immunization orders. . 0.5 mL 0 No current facility-administered medications for this visit. PMH, surgical history, family history, social history: Reviewed, unchanged except where noted. Review of Systems - History obtained from the patient General ROS: negative for - chills, fatigue, fever or weight loss ENT ROS: positive for - vocal changes negative for - nasal congestion, nasal discharge, sinus pain or sore throat Respiratory ROS: positive for - cough negative for - shortness of breath, sputum changes or wheezing Cardiovascular ROS: negative for - chest pain, edema or palpitations Musculoskeletal ROS: positive for - joint pain and joint swelling BP (!) (P) 152/87 Pulse (P) 84 Resp 14 Wt 92.5 kg (204 lb) SpO2 (P) 96% BMI 31.02 kg/m General appearance: alert, appears stated age, cooperative and no distress Head: Normocephalic, without obvious abnormality Eyes: negative findings: lids and lashes normal, conjunctivae and sclerae normal and corneas clear Ears: normal TM's and external ear canals both ears Throat: lips, mucosa, and tongue normal; teeth and gums normal and no thrush Neck: no adenopathy, no JVD, supple, symmetrical, trachea midline and thyroid not enlarged, symmetric, no tenderness/mass/nodules Lungs: clear to auscultation bilaterally, normal percussion bilaterally and unlabored Heart: regular rate and rhythm, S1, S2 normal, no murmur, click, rub or gallop Extremities: extremities normal, atraumatic, no cyanosis or edema Skin: Skin color, texture, turgor normal. 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 His vocal issues are likely related to his inhaler usage although acid reflux could certainly be a contributing factor. I have changed his inhaler to Dulera 200/5 with a spacer. He was instructed to contact me with results of the change in his inhaler and whether or not this alleviates his vocal issues. Otherwise he will see me back in 6 months or sooner if he develops problems. He was given a flu vaccine today. documented in this encounter* Marilee Mahmood MD - 11/04/2019 10:00 AM EDT CC: follow-up cough asthma HPI: Greg Pozo is a 69 y.o. male non-smoker with chronic cough, sleep apnea, acid reflux disease and a new diagnosis of diabetes who presents for routine follow-up visit. His cough variant asthmawas diagnosed by pulmonary function test showing mild reversible obstruction. He has been on Breo Ellipta with good control of his symptoms. He was having some issues with sore throat and hoarseness.His inhaler therapy was changed to Dulera but he did not note much change in his voice issues. He was on Symbicort for a while until he could not afford the Breo Ellipta but he prefers the Ellipta for symptom control. He has not been ill with any upper respiratory infections, had any ill contacts nor has he been traveling. He specifically denies any significant shortness of breath, cough, wheezing, chest pain. He has not required use of his rescue inhaler. He was recently diagnosed with diabetes and has started on metformin. His glucose levels in the morning range are around 120 per his report. His acid reflux has not been a problem as long as he takes Protonix. Ref Range & Units 5mo ago Sodium 135 - 145 mmol/L 136 Potassium 3.5 - 5.1 mmol/L 4.2 Chloride 98 - 108 mmol/L 105 Bicarbonate 21 - 32 mmol/L 24 Anion Gap 10 - 20 mmol/L 11 Glucose 65 - 99 mg/dL 142High BUN 8 - 25 mg/dL 23 Creatinine 0.80 - 1.30 mg/dL 1.00 eGFR >=60 mL/min/1.73 m2 78 BUN/Creatinine Ratio 10.0 - 20.0 23.0High Calcium 8.4 - 10.2 mg/dL 9.0 Ref Range & Units 5mo ago WBC 4.50 - 11.00 K/mcL 9.12 RBC 4.50 - 5.90 M/mcL 4.62 Hemoglobin 13.5 - 17.5 g/dL 13.7 Hematocrit 41.0 - 53.0 % 41.5 MCV 80.0 - 100.0 fL 89.8 MCH 26.0 - 34.0 pg 29.7 MCHC 31.0 - 37.0 g/dL 33.0 Platelets 150 - 400 K/mcL 180 RDW - CV 11.6 - 14.8 % 12.4 MPV 9.0 - 15.5 fL 9.9 Neutrophils % 71.4 Lymphocytes % 19.6 Monocytes % 7.7 Eosinophils % 0.4 Basophils % 0.2 IG Percent % 0.70 Current Outpatient Medications Medication Sig Dispense Refill ascorbic acid, vitamin C, (vitamin C) 1000 MG tablet Take 1,000 mg by mouth daily . atorvastatin (LIPITOR) 40 MG tablet Take 1 (one) tablet (40 mg total) by mouth daily . 30 tablet 11 calcium carbonate-vitamin D2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 not specified Diagnosis Cough variant asthma- Primary Diagnosis Asthma, cough variant- Primary Cough variant asthma Gastroesophageal reflux disease with esophagitis Diagnosis Asthma, cough variant Cough variant asthma Diagnosis Claudication (HCC)- Primary Unspecified peripheral vascular disease Coronary artery disease of [place] artery of [place] heart with stable angina pectoris (HCC) Diagnosis Coronary artery disease of [place] artery of [place] heart with stable angina pectoris (HCC)- Primary Essential hypertension Unspecified essential hypertension Advance Directives No Advanced Directives Records FoundDocuments on File Type Date Recorded Patient Rn Orthopaedics Expl anation Advance Directives and Livin g Will 11/07/2018 8:39 AM Documents on File Type Date Recorded Patient Rn Orthopaedics Expl anation Advance Directives and Livin g Will 05/14/2019 8:39 AM Documents on File Type Date Recorded Patient Rn Orthopaedics Expl anation Advance Directives and Livin g Will 11/07/2018 8:39 AM Reason for Referral Status Reason Specialty Diagnoses / Procedures Referred By Contact Referred To Contact Authorized Pulmonology Diagnoses Cough Procedures Complete PFT with Marilee Palmer MD [address] [place] [id number] Status Reason Specialty Diagnoses / Procedures Referred By Contact Referred To Contact Closed Pulmonology Diagnoses Cough Procedures Complete PFT with Marilee Palmer MD [address] [place] [id number] Status Reason Specialty Diagnoses / Procedures Referred By Contact Referred To Contact Pending Review Cardiology Diagnoses Claudication (HCC) Procedures Segmental doppler lower extremity arterial w exercise Nu Rowland MD [facility] [place] [address] Summary Purpose Family History No Family History Records Found Brother Name Dates Details Family history of malignant neoplasm of bone(V16.8, Z80.8) Status:Active Family history of malignant neoplasm of prostate(V16.42, Z80.42) Status:Active Brother Name Dates Details Family history of malignant neoplasm of bone(V16.8, Z80.8) Status:Active Family history of malignant neoplasm of prostate(V16.42, Z80.42) Status:Active Brother Name Dates Details Family history of malignant neoplasm of bone(V16.8, Z80.8) Status:Active Family history of malignant neoplasm of prostate(V16.42, Z80.42) Status:Active Brother Name Dates Details Family history of malignant neoplasm of bone(V16.8, Z80.8) Status:Active Family history of malignant neoplasm of prostate(V16.42, Z80.42) Status:Active Brother Name Dates Details Family history of malignant neoplasm of bone(V16.8, Z80.8) Status:Active Family history of malignant neoplasm of prostate(V16.42, Z80.42) Status:Active Brother Name Dates Details Family history of malignant neoplasm of bone(V16.8, Z80.8) Status:Active Family history of malignant neoplasm of prostate(V16.42, Z80.42) Status:Active Brother Name Dates Details Family history of malignant neoplasm of bone(V16.8, Z80.8) Status:Active Family history of malignant neoplasm of prostate(V16.42, Z80.42) Status:Active Brother Name Dates Details Family history of malignant neoplasm of bone(V16.8, Z80.8) Status:Active Family history of malignant neoplasm of prostate(V16.42, Z80.42) Status:Active Brother Name Dates Details Family history of malignant neoplasm of bone(V16.8, Z80.8) Status:Active Family history of malignant neoplasm of prostate(V16.42, Z80.42) Status:Active Brother Name Dates Details Family history of malignant neoplasm of bone(V16.8, Z80.8) Status:Active Family history of malignant neoplasm of prostate(V16.42, Z80.42) Status:Active Brother Name Dates Details Family history of malignant neoplasm of bone(V16.8, Z80.8) Status:Active Family history of malignant neoplasm of prostate(V16.42, Z80.42) Status:Active Brother Name Dates Details Family history of malignant neoplasm of bone(V16.8, Z80.8) Status:Active Family history of malignant neoplasm of prostate(V16.42, Z80.42) Status:Active Unknown Family Member Name Dates Details Family history of malignant neoplasm of bone: Brother(V16.8, Z80.8) Status:Active Family history of malignant neoplasm of prostate: Brother(V16.42, Z80.42) Status:Active Unknown Family Member Name Dates Details Family history of malignant neoplasm of bone: Brother(V16.8, Z80.8) Status:Active Family history of malignant neoplasm of prostate: Brother(V16.42, Z80.42) Status:Active Unknown Family Member Name Dates Details Family history of malignant neoplasm of bone: Brother(V16.8, Z80.8) Status:Active Family history of malignant neoplasm of prostate: Brother(V16.42, Z80.42) Status:Active Unknown Family Member Name Dates Details Family history of malignant neoplasm of bone: Brother(V16.8, Z80.8) Status:Active Family history of malignant neoplasm of prostate: Brother(V16.42, Z80.42) Status:Active Unknown Family Member Name Dates Details Family history of malignant neoplasm of bone: Brother(V16.8, Z80.8) Status:Active Family history of malignant neoplasm of prostate: Brother(V16.42, Z80.42) Status:Active Unknown Family Member Name Dates Details Family history of malignant neoplasm of bone: Brother(V16.8, Z80.8) Status:Active Family history of malignant neoplasm of prostate: Brother(V16.42, Z80.42) Status:Active Unknown Family Member Name Dates Details Family history of malignant neoplasm of bone: Brother(V16.8, Z80.8) Status:Active Family history of malignant neoplasm of prostate: Brother(V16.42, Z80.42) Status:Active Unknown Family Member Name Dates Details Family history of malignant neoplasm of prostate: Brother(V16.42, Z80.42) Status:Active Family history of malignant neoplasm of bone: Brother(V16.8, Z80.8) Status:Active Unknown Family Member Name Dates Details Family history of malignant neoplasm of prostate: Brother(V16.42, Z80.42) Status:Active Family history of malignant neoplasm of bone: Brother(V16.8, Z80.8) Status:Active Unknown Family Member Name Dates Details Family history of malignant neoplasm of bone: Brother(V16.8, Z80.8) Status:Active Family history of malignant neoplasm of prostate: Brother(V16.42, Z80.42) Status:Active Unknown Family Member Name Dates Details Family history of malignant neoplasm of bone: Brother(V16.8, Z80.8) Status:Active Family history of malignant neoplasm of prostate: Brother(V16.42, Z80.42) Status:Active Unknown Family Member Name Dates Details Family history of malignant neoplasm of prostate: Brother(V16.42, Z80.42) Status:Active Family history of malignant neoplasm of bone: Brother(V16.8, Z80.8) Status:Active Unknown Family Member Name Dates Details Family history of malignant neoplasm of bone: Brother(V16.8, Z80.8) Status:Active Family history of malignant neoplasm of prostate: Brother(V16.42, Z80.42) Status:Active Unknown Family Member Name Dates Details Family history of malignant neoplasm of bone: Brother(V16.8, Z80.8) Status:Active Family history of malignant neoplasm of prostate: Brother(V16.42, Z80.42) Status:Active Unknown Family Member Name Dates Details Family history of malignant neoplasm of bone: Brother(V16.8, Z80.8) Status:Active Family history of malignant neoplasm of prostate: Brother(V16.42, Z80.42) Status:Active Unknown Family Member Name Dates Details Family history of malignant neoplasm of bone: Brother(V16.8, Z80.8) Status:Active Family history of malignant neoplasm of prostate: Brother(V16.42, Z80.42) Status:Active Unknown Family Member Name Dates Details Family history of malignant neoplasm of bone: Brother(V16.8, Z80.8) Status:Active Family history of malignant neoplasm of prostate: Brother(V16.42, Z80.42) Status:Active Unknown Family Member Name Dates Details Family history of malignant neoplasm of bone: Brother(V16.8, Z80.8) Status:Active Family history of malignant neoplasm of prostate: Brother(V16.42, Z80.42) Status:Active Unknown Family Member Name Dates Details Family history of malignant neoplasm of prostate: Brother(V16.42, Z80.42) Status:Active Family history of malignant neoplasm of bone: Brother(V16.8, Z80.8) Status:Active Unknown Family Member Name Dates Details Family history of malignant neoplasm of bone: Brother(V16.8, Z80.8) Status:Active Family history of malignant neoplasm of prostate: Brother(V16.42, Z80.42) Status:Active Unknown Family Member Name Dates Details Family history of malignant neoplasm of bone: Brother(V16.8, Z80.8) Status:Active Family history of malignant neoplasm of prostate: Brother(V16.42, Z80.42) Status:Active Unknown Family Member Name Dates Details Family history of malignant neoplasm of bone: Brother(V16.8, Z80.8) Status:Active Family history of malignant neoplasm of prostate: Brother(V16.42, Z80.42) Status:Active Unknown Family Member Name Dates Details Family history of malignant neoplasm of prostate: Brother(V16.42, Z80.42) Status:Active Family history of malignant neoplasm of bone: Brother(V16.8, Z80.8) Status:Active Unknown Family Member Name Dates Details Family history of malignant neoplasm of bone: Brother(V16.8, Z80.8) Status:Active Family history of malignant neoplasm of prostate: Brother(V16.42, Z80.42) Status:Active Unknown Family Member Name Dates Details Family history of malignant neoplasm of bone: Brother(V16.8, Z80.8) Status:Active Family history of malignant neoplasm of prostate: Brother(V16.42, Z80.42) Status:Active Unknown Family Member Name Dates Details Family history of malignant neoplasm of bone: Brother(V16.8, Z80.8) Status:Active Family history of malignant neoplasm of prostate: Brother(V16.42, Z80.42) Status:Active Unknown Family Member Name Dates Details Family history of malignant neoplasm of prostate: Brother(V16.42, Z80.42) Status:Active Family history of malignant neoplasm of bone: Brother(V16.8, Z80.8) Status:Active Unknown Family Member Name Dates Details Family history of malignant neoplasm of bone: Brother(V16.8, Z80.8) Status:Active Family history of malignant neoplasm of prostate: Brother(V16.42, Z80.42) Status:Active Unknown Family Member Name Dates Details Family history of malignant neoplasm of bone: Brother(V16.8, Z80.8) Status:Active Family history of malignant neoplasm of prostate: Brother(V16.42, Z80.42) Status:Active Unknown Family Member Name Dates Details Family history of malignant neoplasm of bone: Brother(V16.8, Z80.8) Status:Active Family history of malignant neoplasm of prostate: Brother(V16.42, Z80.42) Status:Active Unknown Family Member Name Dates Details Family history of malignant neoplasm of bone: Brother(V16.8, Z80.8) Status:Active Family history of malignant neoplasm of prostate: Brother(V16.42, Z80.42) Status:Active Chief [facility] check, [facility] yr w/PSA6 month check up, concerned about arthritis6 month check upKAL pt presents with c/o left knee bruising, swelling, redness, warm to touch, knee cap pain x2 days.Left leg still sore, swelling by in of day6 mo f/u, lab reviewYearly w/ PSA Yearly w/ PSA AND KUB Additional Source Comments Reason for Visit (unrecogniz ed section and content) Reason Comments Hypertension nurse visit Reason Comments Consult Cough, Bronchitis Status Reason Specialty Diagnoses / Procedures Referred By Contact Referred To Contact Closed Pulmonology Diagnoses Cough Procedures Complete PFT with Marilee Palmer MD [address] [place] [address] [place] [address] Reason Comments Follow-up f/u after PFT Reason Comments Follow-up 6 week f/u Reason Comments Follow-up 4 month f/u Reason Comments Follow-up Asthma Reason Comments Follow-up 3 mo follow up - pt denies any cardiac concerns today Reason Comments Follow-up Denies chest pain,pr essure,SOB,Swelling.. Reason Comments Medication Refill Assessment & Plan Note - Roberto Carlos Cardona MD - 08/12/2018 9:39 AM ESTAssessment & Plan Note - Roberto Carlos Cardona MD - 08/12/2018 9:38 AM EST Miscellaneous Notes (unrecog nized section and content) Associated Problem(s): SHALA (obstructive sleep apnea) I explained to him the importance of compliance with CPAP therapy. He was warned. Associated Problem(s): Hypertension His blood pressure is markedly elevated. It has been elevated at the time of his other medical encounters. I have taken liberty of discontinuing his lisinopril. I have added lisinopril/hydrochlorothiazide 20/12.5 mg daily. He will remain on metoprolol succinate 100 mg daily. I will have him return in 2 weeks for blood pressure check. His blood pressure medication will need to be aggressively titrated. in this encounter Nico Fox, SIGN FABRICATOR - 11/07/2018 10:00 AM EDT Procedure Notes (unrecognize d section and content) Procedure(s): FENO TEST; FENO TEST FENO leels prior to testing - 17ppb documented in this encounter (unrecognized sect ion and content) No Status Records FoundNo Status Records FoundNo Status Records FoundNo Status Records FoundNo Status Records FoundNo Status Records FoundNo Status Records Found INFORMATION SOURCE (unrecogn ized section and content) DATE CREATED AUTHOR AUTHOR'S ORGANIZ ATION 05/16/2019 [facility] DATE CREATED AUTHOR AUTHOR'S ORGANIZ ATION 04/13/2020 [facility] DATE CREATED AUTHOR AUTHOR'S ORGANIZ ATION 06/02/2022 [facility] DATE CREATED AUTHOR AUTHOR'S ORGANIZ ATION 02/28/2023 [facility] DATE CREATED AUTHOR AUTHOR'S ORGANIZ ATION 02/28/2023 [employer] DATE CREATED AUTHOR AUTHOR'S ORGANIZ ATION 03/17/2023 [facility] <item> Privacy Markings (unrecogniz ed section and content) Section Author: Radha Resendiz PROHIBITION ON REDISCLOSURE OF CONFIDENTIAL INFORMATION This notice accompanies a disclosure of information concerning a client made to you with the consent of such client. Care Teams (unrecognized sec tion and content) [employer] Relationship Specialty Start Date End Date Fatmata Kwon MD [address] [place] [address] PCP - General 03/03/19 Fatmata Kwon MD [address] [place] [address] [facility] Attributed Provider 07/01/21 FOR RECORDS PERTAINING TO PATIENTS WHO ARE OR HAVE BEEN ENROLLED IN A CHEMICAL DEPENDENCY/SUBSTANCEABUSE PROGRAM, SOME INFORMATION MAY BE OMITTED. This clinical summary was aggregated from multiple sources. Caution should be exercised in using it in the provision of clinical care. This summary normalizes information from multiple sources, and as a consequence, information in this document may materially change the coding, format and clinical context of patient data. In addition, data may be omitted in some cases. CLINICAL DECISIONS SHOULD BE BASED ON THE PRIMARY CLINICAL RECORDS. [facility]. provides no warranty or guarantee of the accuracy or completeness of information in this document.
== END | disposition home or self-care (01) ==
LOC: CVS 13:38
PROVIDERS: PCP Family Medicine; Referring Provider Ophthalmology; Visit Provider Ophthalmology
DX: H34.11 Central retinal artery occlusion, right eye (principal)
CPT/HCPCS: 93880

== ENCOUNTER → 2023-07-23 | Outpatient (CLI) | payer MEDICARE, BC, SELFPAY ==
--- NOTE | 2023-07-23 08:32 | ECHOD_ITS ---
Reason For Study: Central Retinal Artery Occlusion Procedure This was a 2D Doppler, Color Flow transthoracic echocardiogram. Exam performed in department. Left Ventricle Normal LV size. Left ventricular systolic function is normal. The estimated ejection fraction is 65 %. Stage 1 diastolic dysfunction. No regional wall motion abnormalities noted. Right Ventricle Normal RV size. Normal systolic function. Atria Normal left atrium. Normal right atrium. Mitral Valve There is mild to moderate mitral annular calcification. Tricuspid Valve Normal tricuspid valve. Mild tricuspid valve insufficiency. Pulmonary artery systolic pressure is 21 mmHg. Aortic Valve Trisinus/trileaflet aortic valve. Mild focal aortic valve calcification. Pulmonic Valve Normal pulmonic valve. Great Vessels Normal aortic root. The pulmonary artery is normal size. Normal inferior vena cava. Pericardium/Pleural No pericardial effusion. Medication Previous NEGATIVE Bubble studies on Echo and ROMMEL (2020). MMode/2D Measurements & Calculations LVIDd: 4.8 cm IVSd: 1.2 cm LA dimension: 3.9 cm LVIDs: 3.0 cm LVPWd: 1.1 cm RVDd: 4.2 cm FS: 36.9 % LAV(MOD-bp): 48.9 ml LVAd ap4: 23.5 cm2 SV(MOD-sp4): 41.8 ml LAV(MOD-bp) Indexed: 24.9 ml/m2 LVLd ap4: 7.3 cm LAV(MOD-sp2): 52.3 ml EDV(MOD-sp4): 64.4 ml LAV(MOD-sp4): 39.9 ml EDV(sp4-el): 64.1 ml LVAs ap4: 12.7 cm2 LVLs ap4: 6.9 cm ESV(MOD-sp4): 22.5 ml ESV(sp4-el): 20.0 ml EF(MOD-sp4): 65.0 % EF(sp4-el): 68.8 % SV(sp4-el): 44.1 ml LA A4 area: 15.0 cm2 RA A4 area: 14.7 cm2 TAPSE: 1.5 cm Time Measurements MV dec time: 0.24 sec Doppler Measurements & Calculations MV E max david: 52.4 cm/sec Lat Peak E' David: 8.4 cm/sec Med Peak E' David: 6.0 cm/sec MV A max david: 98.5 cm/sec E/E' lat: 6.2 E/E' med: 8.7 MV E/A: 0.53 MV V2 max: 113.5 cm/sec MV P1/2t max david: 52.9 cm/sec Ao V2 max: 101.8 cm/sec MV max P.2 mmHg MV P1/2t: 87.9 msec Ao max P.1 mmHg MV V2 mean: 50.6 cm/sec Ao V2 mean: 72.9 cm/sec MV mean P.3 mmHg MV dec slope: 176.4 cm/sec2 Ao mean P.4 mmHg MV V2 VTI: 21.3 cm MVA(P1/2t): 2.5 cm2 Ao V2 VTI: 20.8 cm AV (velocity ratio): 0.83 LV V1 max: 91.2 cm/sec PA V2 max: 75.3 cm/sec TR max david: 217.4 cm/sec LV V1 max P.3 mmHg TR max P.9 mmHg LV V1 mean P.0 mmHg LV V1 mean: 68.0 cm/sec LV V1 VTI: 17.3 cm ECHO/Echo Complete Interpretation Summary Normal LV size. Left ventricular systolic function is normal. The estimated ejection fraction is 65 %. Stage 1 diastolic dysfunction. Mild focal aortic valve calcification. There is mild to moderate mitral annular calcification. Ordering Physician: Ric Barber Referring Physician: Fatmata Uribe Performed By: Godwin Denson RCS
== END | disposition home or self-care (01) ==
LOC: CVS 08:28
PROVIDERS: PCP Family Medicine; Referring Provider Ophthalmology; Visit Provider Ophthalmology
DX: H34.11 Central retinal artery occlusion, right eye (principal); I50.30 Unspecified diastolic (congestive) heart failure; I70.0 Atherosclerosis of aorta; I34.81 Nonrheumatic mitral (valve) annulus calcification
CPT/HCPCS: 93306

== ENCOUNTER → 2025-02-08 | Outpatient (CLI) | payer MEDICARE, BC, SELFPAY ==
[2025-02-08 12:13] LABS: PSA,Total- Diagnostic 6.45 ng/mL (0.00-4.00)
== END | disposition home or self-care (01) ==
LOC: LAB 10:04
PROVIDERS: PCP Family Medicine; Referring Provider Nurse Practitioner; Visit Provider Nurse Practitioner
DX: C61 Malignant neoplasm of prostate (principal)
CPT/HCPCS: 36415; 84153